=== PATIENT | male | born 1970 | race Caucasian/White ===

== ENCOUNTER 2017-12-29 19:20 | Observation (INO) ==
--- NOTE | 2017-12-29 19:22 | Emergency Department Note ---
Disposition Clinical Impression: Nausea and vomiting, Elevated troponin Disposition: Admitted As Inpatient Condition: Fair General Adult HPI - General Time Seen by Provider: 12/29/17 19:21 - Related Data Home Medications Medication Instructions Recorded Confirmed No Known Home Drugs 12/29/17 12/29/17 Allergies Allergy/AdvReac Type Severity Reaction Status Date / Time No Known Allergies Allergy Verified 04/01/16 08:21 Past Medical History - Past Medical History Medical history: Reports: COPD Surgical history: Reports: other (Bilateral inguinal hernia repairs) Psychiatric history: Reports: depression - Social History Smoking Status: Current every day smoker Smokeless Tobacco Status: No Alcohol use: Reports: none Drug use: Reports: marijuana Course Vital Signs Temperature 99 F 12/29/17 19:21 Pulse Rate 72 12/29/17 19:21 Respiratory Rate 20 12/29/17 19:21 Blood Pressure 138/83 12/29/17 19:21 O2 Sat by Pulse Oximetry 99 12/29/17 19:21 Temperature 99 F 12/29/17 19:21 Pulse Rate 72 12/29/17 19:21 Respiratory Rate 20 12/29/17 19:21 Blood Pressure 138/83 12/29/17 19:21 O2 Sat by Pulse Oximetry 99 12/29/17 19:21 Oxygen Delivery Oxygen Delivery Room Air Medical Decision Making - Lab Data Result diagrams: 12/29/17 20:24 12/29/17 20:24 Lab Results 12/29/17 12/29/17 12/29/17 Range/Units 20:24 20:24 20:24 WBC 9.3 (4.3-11.1) K/mcL RBC 4.54 (4.19-5.50) M/mcL Hgb 13.7 (12.9-16.9) g/dL Hct 40.2 (37.5-50.1) % MCV 88.5 (83.0-100.0) fL MCH 30.2 (28.0-33.3) pg MCHC 34.1 (31.6-35.5) g/dL RDW 13.5 (11.5-14.5) % Plt Count 235 (140-400) K/mcL MPV 9.3 L (9.4-12.4) fL Immature Gran % 0.3 (0-4) % Seg Neutrophils % 81.1 % Lymphocytes % 14.1 % Monocytes % 2.7 % Eosinophils % 1.0 % Basophils % 0.8 % Neutrophils # 7.6 (1.6-8.9) K/mcL Lymphocytes # 1.3 (0.6-4.6) K/mcL Monocytes # 0.3 (0.0-1.3) K/mcL Eosinophils # 0.1 (0.0-0.6) K/mcL Basophils # 0.1 (0.0-0.2) K/mcL Sodium 140 (136-145) mEq/L Potassium 3.7 (3.5-5.1) mEq/L Chloride 108 H (98-107) mEq/L Carbon Dioxide 22 L (23-29) mEq/L BUN 10 (6-20) mg/dL Creatinine 0.82 (0.70-1.30) mg/dL Est GFR ( Amer) > 60 (> 60) Est GFR (Non-Af Amer) > 60 (> 60) BUN/Creatinine Ratio 12 (6-26) Glucose 111 H (70-105) mg/dL Calculated Osmolality 290 (280-300) Lactic Acid 0.8 (0.5-2.2) mmol/L Calcium 8.8 (8.6-10.3) mg/dL Magnesium (1.6-2.6) mg/dL Total Bilirubin 0.4 (0.3-1.0) mg/dL Direct Bilirubin 0.1 (0.0-0.2) mg/dL Indirect Bilirubin 0.3 (0.0-1.2) mg/dL AST 16 (13-39) Units/L ALT 13 (7-52) Units/L Alkaline Phosphatase 45 (34-104) Units/L Troponin I 0.09 H* (< 0.04) ng/mL Serum Total Protein 6.0 L (6.4-8.9) g/dL Albumin 4.0 (3.5-5.7) g/dL Globulin 2.0 L (2.4-3.5) g/dL Albumin/Globulin Ratio 2.0 (1.1-2.2) Lipase 10 L (11-82) Units/L 03/16/18 Range/Units 20:24 WBC (4.3-11.1) K/mcL RBC (4.19-5.50) M/mcL Hgb (12.9-16.9) g/dL Hct (37.5-50.1) % MCV (83.0-100.0) fL MCH (28.0-33.3) pg MCHC (31.6-35.5) g/dL RDW (11.5-14.5) % Plt Count (140-400) K/mcL MPV (9.4-12.4) fL Immature Gran % (0-4) % Seg Neutrophils % % Lymphocytes % % Monocytes % % Eosinophils % % Basophils % % Neutrophils # (1.6-8.9) K/mcL Lymphocytes # (0.6-4.6) K/mcL Monocytes # (0.0-1.3) K/mcL Eosinophils # (0.0-0.6) K/mcL Basophils # (0.0-0.2) K/mcL Sodium (136-145) mEq/L Potassium (3.5-5.1) mEq/L Chloride (98-107) mEq/L Carbon Dioxide (23-29) mEq/L BUN (6-20) mg/dL Creatinine (0.70-1.30) mg/dL Est GFR ( Amer) (> 60) Est GFR (Non-Af Amer) (> 60) BUN/Creatinine Ratio (6-26) Glucose (70-105) mg/dL Calculated Osmolality (280-300) Lactic Acid (0.5-2.2) mmol/L Calcium (8.6-10.3) mg/dL Magnesium 1.8 (1.6-2.6) mg/dL Total Bilirubin (0.3-1.0) mg/dL Direct Bilirubin (0.0-0.2) mg/dL Indirect Bilirubin (0.0-1.2) mg/dL AST (13-39) Units/L ALT (7-52) Units/L Alkaline Phosphatase (34-104) Units/L Troponin I (< 0.04) ng/mL Serum Total Protein (6.4-8.9) g/dL Albumin (3.5-5.7) g/dL Globulin (2.4-3.5) g/dL Albumin/Globulin Ratio (1.1-2.2) Lipase (11-82) Units/L Attestation Statement - Attestation Attestation: I examined this patient and my medical decision-making was reviewed with the Resident Physician. I agree with the documented findings, disposition and treatment plan as described except to the extent set forth below. [id number] time provided Patient arrives by EMS complaining of nausea and vomiting. He is actively retching at the time of my initial exam. Patient seen in conjunction with the resident physician Dr. Prabhakar
[2017-12-29] MEDS ORDERED: Ondansetron 4 MG/2 ML VIAL IVP ONE (19:23)
[2017-12-29] MEDS ORDERED: 0.9 % Sodium Chloride 1,000 ML IVC ONE (19:23)
[2017-12-29] MEDS ORDERED: Hyoscyamine 0.5 MG/ML MLS IVP ONE (19:28)
[2017-12-29] MEDS ORDERED: Ipratropium/Albuterol Neb 3 ML IH ONE (19:29)
--- NOTE | 2017-12-29 19:32 | Emergency Department Note ---
Disposition Clinical Impression: Elevated troponin Nausea and vomiting Qualifiers: Vomiting type: unspecified Vomiting Intractability: non-intractable Qualified Code(s): R11.2 - Nausea with vomiting, unspecified Disposition: Admitted As Inpatient Condition: Fair Time of Disposition: 22:15 General Adult HPI - General Chief complaint: ED Shortness of Breath/Dyspnea Stated complaint: sob/n/v/d Time Seen by Provider: 12/29/17 19:21 Source: patient Mode of arrival: ambulatory Limitations: no limitations Nursing Notes Reviewed: Yes Vital Signs Reviewed: Yes - History of Present Illness HPI Narrative: 47-year-old male with history of tobacco use presents for evaluation of nausea vomiting diarrhea. Patient also complains of shortness of breath. Patient states it was earlier today. Patient has had several episodes of nonbloody diarrhea. Patient also been vomiting. Patient has cold chills but denies any fevers. Patient also notes shortness of breath. Patient denies any chest pain. Patient notes some abdominal cramping. She denies any recent travel. Pain Scale: 0 - Related Data Home Medications Medication Instructions Recorded Confirmed No Known Home Drugs 12/29/17 12/29/17 Allergies Allergy/AdvReac Type Severity Reaction Status Date / Time No Known Allergies Allergy Verified 04/01/16 08:21 All systems ED: reviewed and negative except as stated. Constitutional: Denies: fever Cardiovascular: Denies: chest pain Respiratory: Reports: cough, dyspnea Gastrointestinal: Reports: abdominal pain, nausea, vomiting, diarrhea Past Medical History - Past Medical History Source: patient Medical history: Reports: COPD Surgical history: Reports: other (Bilateral inguinal hernia repairs) Psychiatric history: Reports: depression - Social History Smoking Status: Current every day smoker Smokeless Tobacco Status: No Alcohol use: Reports: none Drug use: Reports: marijuana Physical Exam - General Limitations: no limitations General appearance: alert, in no apparent distress - Head Head exam: atraumatic, normocephalic, normal inspection - Eye Eye exam: Present: normal appearance, PERRL, EOMI - ENT ENT exam: normal exam - Neck Neck exam: Present: normal inspection - Chest Chest inspection: Present: normal inspection, symmetric chest wall rise - Respiratory Respiratory exam: Present: prolonged expiratory phase, other (Diffuse rhonchorous breath sounds throughout). Absent: respiratory distress - Cardiovascular Cardiovascular exam: Present: regular rate, normal rhythm. Absent: systolic murmur - Abdominal Exam Abdominal exam: Present: soft, Non-Tender. Absent: tenderness, guarding, rebound - Extremities Exam Extremities exam: Present: normal inspection. Absent: pedal edema - Back Exam Back exam: Present: normal inspection - Neurological Exam Neurological exam: Present: alert, oriented X3 - Skin Skin exam: Present: warm, dry, intact, normal color Course Course Narrative: Patient seen and examined. Patient will get basic labs, chest x-ray, EKG symptom actually with IV fluids. Patient also get a breathing treatment. Disposition pending. - Reevaluation(s) Reevaluation #1: Patient is receiving IV fluids. Patient's also receiving antiemetics. Chest x- ray is unremarkable. Time: 20:56 Reevaluation #2: Patients resting comfortably. Time: 21:45 Reevaluation #3: Repeat EKG shows sinus rhythm with no ST or T-wave changes. Regular axis regular rhythm. Time: 22:07 Additional Reevaluation(s): 2219: Patient's been resting comfortably. Patient denies any chest pain or shortness of breath currently. Patient's abdomen plan of care. Patient be admitted for trending troponins and continuing cardiopulmonary evaluation. Vital Signs Temperature 99 F 12/29/17 19:21 Pulse Rate 72 12/29/17 19:21 Respiratory Rate 20 12/29/17 19:21 Blood Pressure 138/83 12/29/17 19:21 O2 Sat by Pulse Oximetry 99 12/29/17 19:21 Temperature 99 F 12/29/17 19:21 Pulse Rate 72 12/29/17 19:21 Respiratory Rate 20 12/29/17 19:21 Blood Pressure 138/83 12/29/17 19:21 O2 Sat by Pulse Oximetry 99 12/29/17 19:21 Oxygen Delivery Oxygen Delivery Room Air Medical Decision Making - [facility] Narrative Medical decision making narrative: Patient presents with complaints of nausea vomiting. Patient reports he does have a cardiac history. However patient had several episodes of nonbilious emesis upon arrival. Patient appeared to be somewhat uncomfortable. Patient had a screening cardiopulmonary evaluation with EKG chest x-ray troponin. Troponin came back elevated at 0.09. Patient did have isolated IA depression in lead 2. Patient did not meet STEMI criteria. Patient had serial EKGs which were unremarkable. Patient was denying chest pain throughout his ED course. Patient denies shortness of breath. Less likely this is pulmonary embolism. Patient denies history of IV drug use. Urinalysis as well as urine drug screen were ordered. Patient was treated with antiemetics. Concerns of nausea and anginal equivalent. Patient was given Lovenox injection given elevated troponin. Patient does not have any contra indications for anticoagulation. Patient will be admitted to the hospital service for further evaluation monitoring. - Lab Data Lab results reviewed: Yes I reviewed the patient's lab results. Result diagrams: 12/29/17 20:24 12/29/17 20:24 Lab Results 12/29/17 12/29/17 12/29/17 Range/Units 20:24 20:24 20:24 WBC 9.3 (4.3-11.1) K/mcL RBC 4.54 (4.19-5.50) M/mcL Hgb 13.7 (12.9-16.9) g/dL Hct 40.2 (37.5-50.1) % MCV 88.5 (83.0-100.0) fL MCH 30.2 (28.0-33.3) pg MCHC 34.1 (31.6-35.5) g/dL RDW 13.5 (11.5-14.5) % Plt Count 235 (140-400) K/mcL MPV 9.3 L (9.4-12.4) fL Immature Gran % 0.3 (0-4) % Seg Neutrophils % 81.1 % Lymphocytes % 14.1 % Monocytes % 2.7 % Eosinophils % 1.0 % Basophils % 0.8 % Neutrophils # 7.6 (1.6-8.9) K/mcL Lymphocytes # 1.3 (0.6-4.6) K/mcL Monocytes # 0.3 (0.0-1.3) K/mcL Eosinophils # 0.1 (0.0-0.6) K/mcL Basophils # 0.1 (0.0-0.2) K/mcL Sodium 140 (136-145) mEq/L Potassium 3.7 (3.5-5.1) mEq/L Chloride 108 H (98-107) mEq/L Carbon Dioxide 22 L (23-29) mEq/L BUN 10 (6-20) mg/dL Creatinine 0.82 (0.70-1.30) mg/dL Est GFR ( Amer) > 60 (> 60) Est GFR (Non-Af Amer) > 60 (> 60) BUN/Creatinine Ratio 12 (6-26) Glucose 111 H (70-105) mg/dL Calculated Osmolality 290 (280-300) Lactic Acid 0.8 (0.5-2.2) mmol/L Calcium 8.8 (8.6-10.3) mg/dL Magnesium (1.6-2.6) mg/dL Total Bilirubin 0.4 (0.3-1.0) mg/dL Direct Bilirubin 0.1 (0.0-0.2) mg/dL Indirect Bilirubin 0.3 (0.0-1.2) mg/dL AST 16 (13-39) Units/L ALT 13 (7-52) Units/L Alkaline Phosphatase 45 (34-104) Units/L Troponin I 0.09 H* (< 0.04) ng/mL Serum Total Protein 6.0 L (6.4-8.9) g/dL Albumin 4.0 (3.5-5.7) g/dL Globulin 2.0 L (2.4-3.5) g/dL Albumin/Globulin Ratio 2.0 (1.1-2.2) Lipase 10 L (11-82) Units/L 12/29/17 Range/Units 20:24 WBC (4.3-11.1) K/mcL RBC (4.19-5.50) M/mcL Hgb (12.9-16.9) g/dL Hct (37.5-50.1) % MCV (83.0-100.0) fL MCH (28.0-33.3) pg MCHC (31.6-35.5) g/dL RDW (11.5-14.5) % Plt Count (140-400) K/mcL MPV (9.4-12.4) fL Immature Gran % (0-4) % Seg Neutrophils % % Lymphocytes % % Monocytes % % Eosinophils % % Basophils % % Neutrophils # (1.6-8.9) K/mcL Lymphocytes # (0.6-4.6) K/mcL Monocytes # (0.0-1.3) K/mcL Eosinophils # (0.0-0.6) K/mcL Basophils # (0.0-0.2) K/mcL Sodium (136-145) mEq/L Potassium (3.5-5.1) mEq/L Chloride (98-107) mEq/L Carbon Dioxide (23-29) mEq/L BUN (6-20) mg/dL Creatinine (0.70-1.30) mg/dL Est GFR ( Amer) (> 60) Est GFR (Non-Af Amer) (> 60) BUN/Creatinine Ratio (6-26) Glucose (70-105) mg/dL Calculated Osmolality (280-300) Lactic Acid (0.5-2.2) mmol/L Calcium (8.6-10.3) mg/dL Magnesium 1.8 (1.6-2.6) mg/dL Total Bilirubin (0.3-1.0) mg/dL Direct Bilirubin (0.0-0.2) mg/dL Indirect Bilirubin (0.0-1.2) mg/dL AST (13-39) Units/L ALT (7-52) Units/L Alkaline Phosphatase (34-104) Units/L Troponin I (< 0.04) ng/mL Serum Total Protein (6.4-8.9) g/dL Albumin (3.5-5.7) g/dL Globulin (2.4-3.5) g/dL Albumin/Globulin Ratio (1.1-2.2) Lipase (11-82) Units/L - Radiology Data Radiology results reviewed: Yes I reviewed the patient's radiology results. Chest X-Ray 12/29/17 19:29 IMPRESSION: 1. No acute process. D/ / Jean Garrett MD / Jean Garrett MD Interpreting Provider: Jean Garrett MD - EKG Data EKG #1 EKG attestation: Yes I reviewed and interpreted this EKG. EKG shows normal: sinus rhythm Rate: normal Rhythm: NSR [place]/QRS: normal Interpretation: no acute changes S.B.A.R. - S.B.A.R. Situation: Demographics Background: Presenting Complaint Assessment: Vital Signs, Course and respsone to treatment, Patient/Family Expectation Recommendation: Barrier(s) to disposition, Recommendation based on pending studies, treatments, or consults Jerome Report Given to: Dr. Newton Cano Repor Time: 22:15
[2017-12-29] MEDS ORDERED: *HR* Promethazine 25 MG/ML VIAL IVP ONE (20:33)
[2017-12-29 21:26] LABS: Alanine Aminotransferase 13 Units/L (7-52); Alkaline Phosphatase 45 Units/L (34-104); Aspartate Amino Transferase 16 Units/L (13-39); BUN/Creatinine Ratio 12 (6-26); Bilirubin,Direct 0.1 mg/dL (0.0-0.2); Bilirubin,Indirect 0.3 mg/dL (0.0-1.2); Bilirubin,Total 0.4 mg/dL (0.3-1.0); Blood Urea Nitrogen 10 mg/dL (6-20); Calcium 8.8 mg/dL (8.6-10.3); Carbon Dioxide 22 mEq/L (23-29); Chloride 108 mEq/L (98-107); Glucose 111 mg/dL (70-105); Lipase 10 Units/L (11-82); Osmolality,Calculated 290 (280-300); Potassium 3.7 mEq/L (3.5-5.1); Sodium 140 mEq/L (136-145); eGFR For African Americans > 60 (> 60); eGFR For Non-African Americans > 60 (> 60)
[2017-12-29 21:42] LABS: Troponin I 0.09 ng/mL (< 0.04)
[2017-12-29] MEDS ORDERED: Aspirin 81 MG TAB.CHEW PO ONE (21:47)
[2017-12-29 22:02] LABS: Basophils # 0.1 K/mcL (0.0-0.2); Basophils % 0.8 %; Eosinophils # 0.1 K/mcL (0.0-0.6); Hematocrit 40.2 % (37.5-50.1); Hemoglobin 13.7 g/dL (12.9-16.9); Immature Granulocytes % 0.3 % (0-4); Lymphocytes # 1.3 K/mcL (0.6-4.6); Lymphocytes % 14.1 %; Mean Corpuscular HGB Conc 34.1 g/dL (31.6-35.5); Mean Corpuscular Hemoglobin 30.2 pg (28.0-33.3); Mean Corpuscular Volume 88.5 fL (83.0-100.0); Mean Platelet Volume 9.3 fL (9.4-12.4); Monocytes # 0.3 K/mcL (0.0-1.3); Monocytes % 2.7 %; Neutrophils # 7.6 K/mcL (1.6-8.9); Platelet Count 235 K/mcL (140-400); Red Blood Count 4.54 M/mcL (4.19-5.50); Red Cell Distribution Width 13.5 % (11.5-14.5); Segmented Neutrophils % 81.1 %
[2017-12-29] MEDS ORDERED: *HR* Enoxaparin 80 MG/0.8 ML SYRINGE SQ STA (22:11)
[2017-12-29 22:47] LABS: Bilirubin,Urine Small (Negative); Blood,Urine Negative (Negative); Clarity,Urine Clear (Clear); Color,Urine Dark Yellow (Yellow); Glucose,Urine (UA) Normal (Normal); Ketones,Urine 40 mg/dL (Negative); Leukocyte Esterase,Urine Negative (Negative); Nitrite,Urine Negative (Negative); Protein,Urine 30 mg/dL (Neg-Trace); Specific Gravity,Urine 1.022 (1.010-1.025); Urobilinogen,Urine Normal (Normal)
[2017-12-29 22:48] LABS: Amphetamine Screen,Urine Negative ng/mL (Cutoff=1000); Barbiturate Screen,Urine Negative ng/mL (Cutoff=200); Benzodiazepines Screen,Urine Negative ng/mL (Cutoff=200); Cannabinoid Screen,Urine Positive ng/mL (Cutoff = 50); Cocaine Screen,Urine Negative ng/mL (Cutoff= 300); Opiate Screen,Urine Negative ng/mL (Cutoff=300); Phencyclidine Screen,Urine Negative ng/mL (Cutoff=25)
[2017-12-29 22:49] LABS: Hyaline Casts,Urine None Seen per lpf (None-Few); Squamous Epithelial Cell,Urine Many per lpf (None-Few); WBC,Urine 0-3 per hpf (0-3)
[2017-12-29 22:58] LABS: Bacteria,Urine Few per hpf (None-Few)
[2017-12-30] MEDS ORDERED: Naloxone 0.4 MG/ML INJ IVP PRN (00:18)
[2017-12-30] MEDS ORDERED: Acetaminophen 325 MG TABLET PO PRN (00:35)
[2017-12-30] MEDS ORDERED: Hyoscyamine 0.5 MG/ML MLS IVP PRN (00:35)
[2017-12-30] MEDS ORDERED: Ondansetron 4 MG/2 ML VIAL IVP PRN (00:35)
[2017-12-30] MEDS: D5% in 0.45% NACL w KCl 10 MEQ/1,000 ML MLS IVC SCH ×2 (01:39→14:18)
--- NOTE | 2017-12-30 02:28 | Internal Med History&Physical ---
Date of Encounter: 12/29/17 Time of Encounter: 22:00 Assessment and Plan (1) Elevated troponin Current visit: Yes Status: Acute Troponin is elevated to 0.09. We will continue to trend troponin 3 with concern for NSTEMI ECG did show some MO depression in lead 2, but no ST changes Vital signs are stable, and the patient is denying chest pain CXR shows no acute process Will continue Lovenox BID and aspirin Will consult cardiology (2) Nausea and vomiting Current visit: Yes Status: Acute Nausea and vomiting are much improved with medications. Patient received Levsin, Benadryl, Zofran, and Phenergan in the emergency department Continue symptomatic treatment with Zofran and Levsin Qualifiers: Vomiting type: unspecified Vomiting Intractability: non-intractable Qualified Code(s): R11.2 - Nausea with vomiting, unspecified (3) COPD (chronic obstructive pulmonary disease) Current visit: Yes Status: Chronic Does not appear to be an acute exacerbation at this time, nonproductive sputum and wheezing. Will have DuoNeb's available on an as-needed basis for shortness of breath Qualifiers: COPD type: unspecified COPD Qualified Code(s): J44.9 - Chronic obstructive pulmonary disease, unspecified (4) DVT prophylaxis Current visit: Yes Status: Acute Patient is on Lovenox Internal Medicine - H&P: HPI Chief complaint: Nausea/vomiting Admitted From: Emergency Dept History of present illness: Mr. Pelayo is a 47 year old male with PMH of COPD and tobacco use, presents the emergency department with nausea, vomiting, and diarrhea that began several hours prior to arrival. He states that there were no preceding symptoms, however he was quite active doing things around the house before that began. He states that he had several episodes of diarrhea is nonbloody. He is reporting some subjective chills, but no fever. Associated symptoms include shortness of breath, dry non-productive cough, and diffuse abdominal cramping pain, and symptoms have been relatively constant. He denies radiation of his abdominal pain and denies diaphoresis. Nothing seems to make his symptoms worse. He reports improvement in symptoms after receiving medications in the emergency department. He denies having any syncope, chest pain, or dysuria with his symptoms today. He denies having any chest pain in the past. He states that he is not in any heart problems in the past, hypertension, or diabetes. He is a current every day smoker. Past Med Surg Social Fam HX - Past Medical History Medical history: COPD Psychiatric history: depression - Past Surgical History Surgical History: herniorrhaphy - Social History Smoking Status: Current every day smoker Packs per day: 1 Smokeless Tobacco Status: No Alcohol use: none Drug use: marijuana - Family History Father Adopted: [employer]: [employer] Family Member Ethnicity: Non- Living Status: Age at : 69 Cause of : NM Hx Family Cardiac Disorders: Yes Internal Medicine - H&P: Meds No Known Home Drugs 12/29/17 [History] 3 Allergy/AdvReac Type Severity Reaction Status Date / Time No Known Allergies Allergy Verified 04/01/16 08:21 All Systems PM: A 10-system review of systems was performed and is negative for pertinent findings except as documented above in the HPI. - Constitutional Vitals: Temp Pulse Resp BP Pulse Ox 99 F 72 18 120/81 99 12/29/17 19:21 12/29/17 19:21 12/29/17 22:58 12/29/17 22:58 12/29/17 19:21 General appearance: Present: A&O X 3, no acute distress - Head Head exam: Present: atraumatic, normocephalic - Eye Eye exam: Present: PERRL, conjuntiva pink, sclera anicteric - Neck Neck exam general surgery: Present: supple, trachea midline. Absent: lymphadenopathy - Respiratory Respiratory exam: Present: CTAB. Absent: accessory muscle use, rales, rhonchi, wheezes - Cardiovascular Cardiovascular exam: Present: RRR, +S1, +S2. Absent: diastolic murmur, systolic murmur - GI/Abdominal GI/Abdominal exam: Present: normal bowel sounds, soft, tenderness (Mild diffuse) , no peritoneal signs. Absent: distended, guarding, rebound, rigid - Extremities Exam Extremities exam: Present: warm, radial pulses palpable and symmetrical. Absent : calf tenderness, cyanotic, pedal edema - Neurological Exam Neurological exam: Present: CN II-XII intact, oriented X3, no focal deficits - Skin Skin exam: Present: dry, intact Internal Med - H&P Results - Labs CBC & Chem 7: 12/29/17 20:24 12/29/17 20:24 Labs: Urine 12/29/17 Range/Units 22:31 Urine Color Dark Yellow (Yellow) Urine Clarity Clear (Clear) Urine pH 7.0 (5.0-8.0) pH Units Ur Specific [place] 1.022 (1.010-1.025) Urine Protein 30 H (Neg-Trace) mg/dL Urine Glucose (UA) Normal (Normal) mg/dL
[2017-12-30] MEDS: Ipratropium/Albuterol Neb 3 ML IH SCH ×4 (04:01→22:32)
[2017-12-30 04:56] LABS: INR 1.2; Prothrombin Time 12.7 Seconds (9.4-12.1)
[2017-12-30 04:58] LABS: Basophils % 0.5 %; Hematocrit 41.7 % (37.5-50.1); Hemoglobin 14.1 g/dL (12.9-16.9); Immature Granulocytes % 0.4 % (0-4); Lymphocytes # 1.3 K/mcL (0.6-4.6); Lymphocytes % 15.8 %; Mean Corpuscular HGB Conc 33.8 g/dL (31.6-35.5); Mean Corpuscular Hemoglobin 29.9 pg (28.0-33.3); Mean Corpuscular Volume 88.3 fL (83.0-100.0); Mean Platelet Volume 9.3 fL (9.4-12.4); Monocytes # 0.2 K/mcL (0.0-1.3); Monocytes % 2.5 %; Neutrophils # 6.5 K/mcL (1.6-8.9); Platelet Count 246 K/mcL (140-400); Red Blood Count 4.72 M/mcL (4.19-5.50); Red Cell Distribution Width 13.5 % (11.5-14.5); Segmented Neutrophils % 80.8 %
[2017-12-30 04:59] LABS: Activated Partial Thrombo Time 39.3 Seconds (26.0-36.0)
[2017-12-30 05:18] LABS: BUN/Creatinine Ratio 14 (6-26); Blood Urea Nitrogen 11 mg/dL (6-20); Calcium 9.2 mg/dL (8.6-10.3); Carbon Dioxide 22 mEq/L (23-29); Chloride 106 mEq/L (98-107); Chol/HDL Ratio 4.7 (0-4.9); Cholesterol 187 mg/dL (< 200); Glucose 144 mg/dL (70-105); HDL Cholesterol 40 mg/dL (40-59); LDL Cholesterol,Calculated 132 mg/dL (0-99); Osmolality,Calculated 288 (280-300); Sodium 138 mEq/L (136-145); Triglycerides 76 mg/dL (< 150); eGFR For African Americans > 60 (> 60); eGFR For Non-African Americans > 60 (> 60)
[2017-12-30 05:26] LABS: Thyroid Stimulating Hormone 0.494 mcIU/mL (0.340-5.600)
[2017-12-30] MEDS ORDERED: Aspirin 325 MG TABLET PO SCH (09:00)
[2017-12-30] MEDS: *HR* Enoxaparin 80 MG/0.8 ML SYRINGE SQ SCH ×2 (09:10→21:19)
--- NOTE | 2017-12-30 10:39 | Cardiology Consult Note ---
<Mike Sims - Last Filed: 12/30/17 11:07> Date of Encounter: 12/30/17 Time of Encounter: 10:40 Assessment and Plan (1) Elevated troponin Current Visit: Yes Status: Acute Per Cardiology: History of nonobstructive CAD. [facility] 01/2015: Lesion Findings/Interventions * Left Main Coronary Artery The LMCA is angiographically free of disease. * Left Anterior Descending The LAD has minimal disease The 1st Diagonal is angiographically free of disease. * Circumflex - tortuous The Circumflex is angiographically free of disease. The 1st Marginal is angiographically free of disease. * Right Coronary Artery There is a 40% stenosis in the Proximal RCA. Presented with elevated troponin 0.09 x 2. Patient has been noncompliant with follow-up with cardiology with being last seen July 2015. Will check echo. On aspirin, will add statin. On Lovenox. Further recommendations pending echo. Anticipate will need repeat left heart catheterization-- has been experiencing increasing dyspnea on exertion and fatigue. Will discuss with Dr. Sofia. Patient agreeable to proceed if clinically warranted. (2) Pre-syncope Current Visit: Yes Status: Acute Per Cardiology: Reports "went out". Increased dizziness and lightheadedness. Significant smoking history and history CAD. No bruits noted. Will interrogate pacer. Proceed with carotid duplex. No events noted on telemetry. Systolic blood pressures in the 90s. Will obtain orthostatics. (3) Artificial cardiac pacemaker Current Visit: Yes Status: Chronic Per Cardiology: History of permanent pacemaker for sick sinus syndrome with last device check November 2015 showing [employer] normal dual pacer check with battery longevity 9.5 years. Has not been compliant with follow-up-- pacer check ok, overall measurements ok with 205 episodes of NSVT since last checked in 2015. Will consider addition of BB if BP will tolerate. (4) Polysubstance abuse Current Visit: Yes Status: Chronic Per Cardiology: Tox screen positive for marijuana. Patient denies any other recreational drug use. Discussion w patient/family: The assessment and plan as outlined above was discussed with the patient who expressed understanding and agreement. All questions were answered. Thank you for involving us in the care of your patient. Please call with any questions. History of Present Illness Consult date: 12/30/17 Requesting physician: Gaurang Ontiveros Consult reason: CP, Mild Trop Chief complaint: CP, Fatigue, Dizziness History of present illness: Mr. Pelayo is a 47 year old male with a relevant past medical history of nonobstructive CAD, nicotine abuse, marijuana use, pacemaker due to sick sinus syndrome. Last seen by Dr. Bowling in 2014-- has been noncompliant with follow-up in the office and for pacer checks. Cardiology consult for mild troponin and chest pain symptoms. 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 He reports increased fatigue. He denies any chest pain symptoms until yesterday. He reports developed chills, diaphoresis, and diarrhea. He reports upon standing leaving the bathroom he "went out". He reports he felt short of breath with some chest heaviness. He reports he called the squad and presented to the ER. He currently denies any chest pain symptoms. He denies any active bleeding or blood loss. He reports he continues to smoke about three fourths pack per day and has smoked about 2 packs per day for 37 years. Admits to marijuana use. Denies any other recreational drugs or alcohol use. Patient does report also episodes of dizziness at rest and exertion that has increased in frequency. He denies any previous syncopal events. He does report intermittent palpitations with exertional activity. Past Med Surg Social Fam HX - Past Medical History Attestation: Yes The following information was validated with the patient. Source: patient, old records reviewed Medical history: COPD, coronary artery disease Psychiatric history: depression - Past Surgical History Surgical History: herniorrhaphy - Social History Smoking Status: Current every day smoker Packs per day: 1 Smokeless Tobacco Status: No Alcohol use: none Drug use: marijuana - Family History Father Adopted: [place]: NIKO Family Member Ethnicity: Non- Living Status: Age at : 69 Cause of : IN Hx Family Cardiac Disorders: Yes Medications and Allergies No Known Home Drugs 12/29/17 [History] 3 Allergy/AdvReac Type Severity Reaction Status Date / Time No Known Allergies Allergy Verified 12/30/17 15:26 All Systems Review: The remainder of the systems were reviewed and are negative - Constitutional Constitutional: fatigue - Cardiovascular Cardiovascular: as per HPI, chest pain at rest, lightheadedness Physical Examination Vital Signs, Last 4 Hours Temp Pulse Resp BP Pulse Ox 12/30/17 08:21 98.8 F 59 16 94/65 93 General: Conversant, No Apparent Distress, Other (Appears older than chronological age) HEENT: Atraumatic, Normocephaly, Mucus Membranes Moist Neck: No JVD, Normal carotid pulses, Other (No carotid bruits noted) Cardiac: Reg Rate and Rhythm, Normal S1 and S2, No Murmur Lungs: Normal Breath Sounds, No Wheeze, Rales, Rhonchi Neuro: Alert and responsive, No focal deficits noted Abdomen: Soft, Non-Tender Skin: No rashes noted on visualized skin Musculoskeletal: No Chest Wall Tenderness Extremities: No Clubbing, No Cyanosis, No Edema, Normal Pulses Results 12/30/17 03:26 12/30/17 03:26 Lab Results Laboratory Tests 12/29/17 12/29/17 12/30/17 20:24 22:31 03:26 Hgb Hct INR Creatinine Est GFR (Non-Af Amer) AST 16 ALT 13 Troponin I 0.09 H* 0.09 H* LDL Cholesterol, Calc TSH U Marijuana (THC) Screen Positive H 12/30/17 12/30/17 12/30/17 03:26 03:26 03:26 Hgb 14.1 Hct 41.7 INR 1.2 Creatinine 0.81 Est GFR (Non-Af Amer) > 60 AST ALT Troponin I LDL Cholesterol, Calc 132 H TSH 0.494 U Marijuana (THC) Screen ITS Impressions Chest X-Ray 12/29/17 19:29 IMPRESSION: 1. No acute process. D/ / Jean Garrett MD / Jean Garrett MD Interpreting Provider: Jean Garrett MD Active Medications Acetaminophen (Tylenol) 650 mg PO Q6HR PRN PRN Reason: Pain Stop: 07/01/18 00:36 Albuterol/Ipratropium (Duoneb) 3 ml IH QIDR DIANELYS Stop: 07/01/18 05:01 Last Admin: 12/30/17 09:25 Dose: 3 ml Aspirin (Aspirin) 325 mg PO DAILY DIANELYS Stop: 07/01/18 09:01 Last Admin: 12/30/17 09:10 Dose: 325 mg Enoxaparin Sodium (Lovenox) 70 mg 1 mg/kg (70 mg) SQ Q12H DIANELYS PRN Reason: Protocol Stop: 07/01/18 10:01 Last Admin: 12/30/17 09:10 Dose: 70 mg Hyoscyamine Sulfate (Levsin) 0.25 mg IVP QID PRN PRN Reason: abdominal pain Stop: 07/01/18 00:36 Potassium Chloride/Dextrose/Sod Cl (Kcl 10meq In D5-0.45 Nacl) 10 meq in 1,000 mls @ 100 mls/hr IVC .Q10H DIANELYS Stop: 07/01/18 01:16 Last Admin: 12/30/17 01:39 Dose: 100 mls/hr Naloxone HCl (Narcan) 0.4 mg IVP Q2MIN PRN PRN Reason: SEE COMMENTS Stop: 07/01/18 00:19 Ondansetron HCl (Zofran) 4 mg IVP Q6HR PRN; Protocol PRN Reason: Nausea Stop: 07/01/18 00:36 - Imaging and Cardiology Echo: pending, report reviewed (ECHO 01/2015: Impressions: Technically challenging study with suboptimal windows. On provided views, LV function appears normal and estimated at 60%. SWMA could not be evaluated. RV function and size on subcostal views appears normal. RA and LA on subcostal views appear normal in size. No significant valvular dysfunction although valves were suboptimally evaluated. IVC is normal in size. There is a long linear echodensity within the IVC, consistent with line placement.) Cardiac cath: pending - EKG Interpretation EKG results cardiology: personally reviewed (Sinus rhythm the 70s), normal ECG, sinus rhythm, no diagnostic ischemia, other (Sinus rhythm on telemetry, no events noted) Consult Discharge Plan - Plan Referrals: NONE,PCP [Primary Care Provider] - <Wilfred Sofia - Last Filed: 12/30/17 22:23> Date of Encounter: 12/30/17 - Attending Attestation I have personally performed a face to face evaluation on this patient. I have reviewed and agree with the care plan. History and Exam by me shows: 47-year-old male with nonobstructive coronary artery disease involving the proximal RCA. Left heart catheter was in 2014. He currently presents with increasing shortness of breath fatigue tiredness. He has a history of hyperthyroidism however he has not been on his medications. Will obtain a T4 if elevated may consider a stress test versus a left heart cath. If within normal range possible progression of disease in his RCA may be a culprit especially in the setting of mildly elevated troponins and a left heart catheter would be reasonable. Risks benefits and alternatives discussed patient agrees to proceed Assessment and Plan Discussion w patient/family: The assessment and plan as outlined above was discussed with the patient and/or family members who expressed understanding and agreement. All questions were answered. Thank you for involving us in the care of your patient. Please call with any questions. History of Present Illness History of present illness: Mr. Pelayo is a 47 year old male All Systems Review: The remainder of the systems were reviewed and are negative Physical Examination Vital Signs, Last 4 Hours Temp Pulse Resp BP Pulse Ox 12/30/17 19:15 98.6 F 86 16 103/56 95 Results 12/30/17 03:26 18 03:26 Lab Results 12/30/17 12/30/17 12/30/17 03:26 03:26 03:26 WBC 8.1 Hgb 14.1 Hct 41.7 Plt Count 246 INR 1.2 APTT 39.3 H Sodium Potassium Chloride Carbon Dioxide BUN Creatinine Glucose Calcium Troponin I 0.09 H* TSH 12/30/17 12/30/17 03:26 10:05 WBC Hgb Hct Plt Count INR APTT Sodium 138 Potassium 4.0 Chloride 106 Carbon Dioxide 22 L BUN 11 Creatinine 0.81 Glucose 144 H Calcium 9.2 Troponin I 0.09 H* TSH 0.494
--- NOTE | 2017-12-30 17:53 | Event Note ---
Date of Encounter: 12/30/17 Time of Encounter: 17:49 (1) Elevated troponin has known CAD. Troponin is elevated to 0.09. Evaluated by cardiology who noted patient has been noncompliant with cardiology follow-up. Will likely need L HC as patient reported increasing dyspnea on exertion and fatigue. TTE pending. Continue ASA, statin, therapeutic Lovenox. Cardiology following (2) Nausea and vomiting Nausea and vomiting are much improved with medications.. Patient received Levsin , Benadryl, Zofran, and Phenergan in the emergency department. Continue symptomatic treatment with Zofran and Levsin. Appears resolved as of 12/30/17 eating. Advance diet as tolerated (3) COPD (chronic obstructive pulmonary disease) Does not appear to be an acute exacerbation at this time, nonproductive sputum and wheezing. PRN duo nebs (4) DVT prophylaxis Lovenox
[2017-12-31] MEDS: D5% in 0.45% NACL w KCl 10 MEQ/1,000 ML MLS IVC SCH ×2 (03:48→08:33)
[2017-12-31] MEDS: Ipratropium/Albuterol Neb 3 ML IH SCH ×4 (03:52→22:42)
--- NOTE | 2017-12-31 07:53 | Cardiology Progress Note ---
Date of Encounter: 12/31/17 Time of Encounter: 07:50 Assessment and Plan (1) Elevated troponin Current Visit: Yes Status: Acute Per Cardiology: History of nonobstructive CAD. [facility] 01/2015: Lesion Findings/Interventions * Left Main Coronary Artery The LMCA is angiographically free of disease. * Left Anterior Descending The LAD has minimal disease The 1st Diagonal is angiographically free of disease. * Circumflex - tortuous The Circumflex is angiographically free of disease. The 1st Marginal is angiographically free of disease. * Right Coronary Artery There is a 40% stenosis in the Proximal RCA. Presented with elevated troponin 0.09 x 3. Patient has been noncompliant with follow-up with cardiology with being last seen July 2015. On aspirin (will decrease to 81mg) and statin. On Lovenox. Echo pending; further recommendations pending echo. Anticipate will need repeat left heart catheterization vs ST. TSH/T4 stable. (2) Pre-syncope Current Visit: Yes Status: Acute Per Cardiology: Reports "went out". Increased dizziness and lightheadedness. Significant smoking history and history CAD. No bruits noted. CD pending. Pacer check with no significant events. No events noted on telemetry. Orthostatics negative. (3) Artificial cardiac pacemaker Current Visit: Yes Status: Chronic Per Cardiology: History of permanent pacemaker for sick sinus syndrome with last device check November 2015 showing Medtr[employer] normal dual pacer check with battery longevity 9.5 years. Has not been compliant with follow-up-- pacer check ok, overall measurements ok with 205 episodes of NSVT since last checked in 2016. Will consider addition of BB if BP will tolerate. (4) Polysubstance abuse Current Visit: Yes Status: Chronic Per Cardiology: Tox screen positive for marijuana. Patient denies any other recreational drug use. Discussion w patient/family: The assessment and plan as outlined above was discussed with the patient who expressed understanding and agreement. All questions were answered. Thank you for involving us in the care of your patient. Please call with any questions. Subjective Principal diagnosis: [place], CP Interval history: Patient reports still experiencing diarrhea. He denies any chest pain, shortness of breath, palpitations. Denies any active bleeding. Objective Vital Signs, Last 4 Hours Temp Pulse Resp BP Pulse Ox 12/31/17 07:42 98.9 F 62 16 101/60 97 12/31/17 03:53 18 97 12/31/17 03:52 98.4 F 60 16 112/73 97 Selected Entries 12/30/17 12:22 Pulse Rate [Orthostatic Lying] 75 Pulse Rate [Orthostatic Sitting] 77 Pulse Rate [Orthostatic Standing] 75 Blood Pressure [Orthostatic Lying] 101/65 Blood Pressure [Orthostatic Sitting] 121/78 Blood Pressure [Orthostatic Standing] 115/77 General: Conversant, No Apparent Distress Cardiac: Reg Rate and Rhythm, Normal S1 and S2, No Murmur Lungs: Normal Breath Sounds, No Wheeze, Rales, Rhonchi Neuro: Alert and responsive, No focal deficits noted Skin: No rashes noted on visualized skin Extremities: No Edema Results 12/30/17 03:26 12/30/17 03:26 Lab Results Laboratory Tests 12/29/17 12/30/17 12/30/17 20:24 03:26 03:26 Troponin I 0.09 H* 0.09 H* TSH 0.494 Free T4 12/30/17 12/31/17 10:05 05:08 Troponin I 0.09 H* TSH Free T4 0.95 Active Medications Acetaminophen (Tylenol) 650 mg PO Q6HR PRN PRN Reason: Pain Stop: 07/01/18 00:36 Albuterol/Ipratropium (Duoneb) 3 ml IH QIDR DIANELYS Stop: 07/01/18 05:01 Last Admin: 12/31/17 03:52 Dose: 3 ml Aspirin (Aspirin) 325 mg PO DAILY DIANELYS Stop: 07/01/18 09:01 Last Admin: 12/30/17 09:10 Dose: 325 mg Atorvastatin Calcium (Lipitor) 40 mg PO HS DIANELYS Stop: 07/01/18 21:01 Last Admin: 12/30/17 21:19 Dose: 40 mg Enoxaparin Sodium (Lovenox) 70 mg 1 mg/kg (70 mg) SQ Q12H DIANELYS PRN Reason: Protocol Stop: 07/01/18 10:01 Last Admin: 12/30/17 21:19 Dose: 70 mg Hyoscyamine Sulfate (Levsin) 0.25 mg IVP QID PRN PRN Reason: abdominal pain Stop: 07/01/18 00:36 Potassium Chloride/Dextrose/Sod Cl (Kcl 10meq In D5-0.45 Nacl) 10 meq in 1,000 mls @ 100 mls/hr IVC .Q10H DIANELYS Stop: 07/01/18 01:16 Last Admin: 12/31/17 03:48 Dose: 100 mls/hr Naloxone HCl (Narcan) 0.4 mg IVP Q2MIN PRN PRN Reason: SEE COMMENTS Stop: 07/01/18 00:19 Ondansetron HCl (Zofran) 4 mg IVP Q6HR PRN; Protocol PRN Reason: Nausea Stop: 07/01/18 00:36 - Imaging and Cardiology Echo: pending - EKG Interpretation EKG results cardiology: other (Atrial paced in the 60s, average heart rate passed 12 hours 70, no events noted) Consult Discharge Plan - Plan Referrals: NONE,PCP [Primary Care Provider] -
[2017-12-31] MEDS: Aspirin Enteric Coated 81 MG Tablet PO SCH (08:33)
[2017-12-31] MEDS: *HR* Enoxaparin 80 MG/0.8 ML SYRINGE SQ SCH ×2 (08:33→21:23)
[2017-12-31 15:55] LABS: Adenovirus Not Detected (Not Detect); Bordetella Pertussis Not Detected (Not Detect); Chlamydophila pneumoniae Not Detected (Not Detect); Coronavirus 229E Not Detected (Not Detect); Coronavirus HKU1 Not Detected (Not Detect); Coronavirus NL63 Not Detected (Not Detect); Coronavirus OC43 Not Detected (Not Detect); Human Metapneumovirus Not Detected (Not Detect); Human Rhinovirus/Enterovirus Not Detected (Not Detect); Influenza A Subtype 2009 H1 Not Detected (Not Detect); Influenza A Untypeable Not Detected (Not Detect); Influenza B Not Detected (Not Detect); Mycoplasma pneumoniae Not Detected (Not Detect); Parainfluenza Virus 1 Not Detected (Not Detect); Parainfluenza Virus 2 Not Detected (Not Detect); Parainfluenza Virus 3 Not Detected (Not Detect); Parainfluenza Virus 4 Not Detected (Not Detect); Respiratory Syncytial Virus Not Detected (Not Detect)
[2017-12-31] MEDS ORDERED: Azithromycin 500 MG in D5% in Water 250 ML IVPB SCH (16:00)
--- NOTE | 2017-12-31 16:01 | Internal Med Progress Note ---
Date of Encounter: 12/31/17 Time of Encounter: 16:00 - Assessment and plan (1) Elevated troponin Current Visit: Yes Status: Acute Assessment and plan: troponin 0.09 x 3. Known history CAD and has been noncompliant with cardiology follow-up. Cont ASA, statin, Lovenox. Cardiology planning [facility] 01/01/18. Cont to monitor on tele. (2) Nausea and vomiting Current Visit: Yes Status: Acute Assessment and plan: For 1 week prior to arrival with associated loose stool. Possibly gastroenteritis as patient reports family/friends with similar symptoms. Nausea and vomiting resolved as of 12/30; tolerating regular diet. Still with loose stool. GI panel pending. Qualifiers: Vomiting type: unspecified Vomiting Intractability: non-intractable Qualified Code(s): R11.2 - Nausea with vomiting, unspecified (3) Pre-syncope Current Visit: Yes Status: Acute Assessment and plan: With reported dizziness, lightheadedness and feeling as is he is going to pass out on day of presentation. [place] secondary to dehydration with suspected gastroenteritis. Symptoms improved with IV hydration. PPM check with no significant events. No evidence of orthostasis. Carotid Dopplers pending. (4) COPD (chronic obstructive pulmonary disease) Current Visit: Yes Status: Chronic Assessment and plan: per hx. suspect possible exacerbation with subjective fevers, chills, cough. Start IV azithromycin, ceftriaxone. Continue duo nebs. No wheezing, hold on steroids at this time. Qualifiers: COPD type: unspecified COPD Qualified Code(s): J44.9 - Chronic obstructive pulmonary disease, unspecified (5) DVT prophylaxis Current Visit: Yes Status: Acute Assessment and plan: lovenox - Subjective Interval history: Seen and examined at bedside. Information obtained from chart review and patient report. Says he feels significantly better from when he arrived. No chest pain or shortness of breath. No further nausea or emesis. He does report frequent loose stool. He is tolerating regular diet. He does report fevers, chills and nonproductive cough. - Constitutional Vitals: Temp Pulse Resp BP Pulse Ox 97.7 F 60 16 111/73 96 12/31/17 15:55 12/31/17 15:55 12/31/17 15:55 12/31/17 15:55 12/31/17 15:55 General appearance: Present: A&O X 3, no acute distress - Head Head exam: Present: atraumatic, normocephalic - Eye Eye exam: Present: PERRL, conjuntiva pink, sclera anicteric Pupils: Present: PERRL - Neck Neck exam general surgery: Present: supple, trachea midline. Absent: lymphadenopathy - Respiratory Respiratory exam: Present: CTAB. Absent: accessory muscle use, rales, rhonchi, wheezes - Cardiovascular Cardiovascular exam: Present: RRR, +S1, +S2. Absent: diastolic murmur, gallop, rubs, systolic murmur - GI/Abdominal GI/Abdominal exam: Present: normal bowel sounds, soft, no peritoneal signs. Absent: distended, tenderness - Extremities Exam Extremities exam: Present: warm, radial pulses palpable and symmetrical. Absent : calf tenderness, cyanotic, pedal edema - Neurological Exam Neurological exam: Present: CN II-XII intact, oriented X3, no focal deficits. Absent: pronater drift, facial droop, speech deficit - Skin Skin exam: Present: dry, intact Internal Medicine: Result - Labs CBC & Chem 7: 12/30/17 03:26 18 03:26 - ABG Interpretation ABG results: PT/INR, D-dimer PT 12.7 Seconds (9.4-12.1) H 12/30/17 03:26 Consult Discharge Plan - Plan Referrals: NONE,PCP [Primary Care Provider] -
[2017-12-31] MEDS: cefTRIAXone 1,000 MG in Water for inj. (sterile) 20 ML 10 ML IVP SCH (17:24)
[2018-01-01] MEDS: Ipratropium/Albuterol Neb 3 ML IH SCH ×3 (04:53→15:55)
[2018-01-01 06:31] LABS: Hematocrit 44.8 % (37.5-50.1); Hemoglobin 15.1 g/dL (12.9-16.9); Immature Platelets 2.3 % (1.1-6.1); Mean Corpuscular HGB Conc 33.7 g/dL (31.6-35.5); Mean Corpuscular Volume 88.9 fL (83.0-100.0); Mean Platelet Volume 9.4 fL (9.4-12.4); Red Blood Count 5.04 M/mcL (4.19-5.50); Red Cell Distribution Width 13.4 % (11.5-14.5)
[2018-01-01 07:11] LABS: BUN/Creatinine Ratio 9 (6-26); Blood Urea Nitrogen 8 mg/dL (6-20); Calcium 9.4 mg/dL (8.6-10.3); Carbon Dioxide 27 mEq/L (23-29); Chloride 106 mEq/L (98-107); Glucose 98 mg/dL (70-105); Osmolality,Calculated 288 (280-300); Potassium 3.9 mEq/L (3.5-5.1); Sodium 140 mEq/L (136-145); eGFR For African Americans > 60 (> 60); eGFR For Non-African Americans > 60 (> 60)
[2018-01-01] MEDS: cefTRIAXone 1,000 MG in Water for inj. (sterile) 20 ML 10 ML IVP SCH (08:00)
[2018-01-01] MEDS: Aspirin Enteric Coated 81 MG Tablet PO SCH (08:01)
[2018-01-01] MEDS: *HR* Enoxaparin 80 MG/0.8 ML SYRINGE SQ SCH (08:01)
--- NOTE | 2018-01-01 10:21 | Cardiology Progress Note ---
Date of Encounter: 01/01/18 Time of Encounter: 09:30 Assessment and Plan (1) Elevated troponin Current Visit: Yes Status: Acute Per Cardiology: History of nonobstructive CAD. [facility] 01/2015: Lesion Findings/Interventions * Left Main Coronary Artery The LMCA is angiographically free of disease. * Left Anterior Descending The LAD has minimal disease The 1st Diagonal is angiographically free of disease. * Circumflex - tortuous The Circumflex is angiographically free of disease. The 1st Marginal is angiographically free of disease. * Right Coronary Artery There is a 40% stenosis in the Proximal RCA. Presented with elevated troponin 0.09 x 3. Patient has been noncompliant with follow-up with cardiology with being last seen July 2015. Echo showed preserved EF , NSWMA. Discussed with thompson Olsen for potential stress test today with patient, however patient prefers to monitor and observe and follow- up in outpatient setting since he feels most of his symptoms are GI related and reports cousin had same symptoms. On aspirin and statin. We will sign off, re- consult as needed, follow-up arranged. (2) Pre-syncope Current Visit: Yes Status: Acute Per Cardiology: Reports "went out". Increased dizziness and lightheadedness. Significant smoking history and history CAD. No bruits noted. CD-- bilateral minimal nonstenotic plaque. Pacer check with no significant events. No events noted on telemetry. Orthostatics negative. SBP stable. (3) Artificial cardiac pacemaker Current Visit: Yes Status: Chronic Per Cardiology: History of permanent pacemaker for sick sinus syndrome with last device check November 2015 showing [employer] normal dual pacer check with battery longevity 9.5 years. Has not been compliant with follow-up-- pacer check ok, overall measurements ok with 205 episodes of NSVT since last checked in 2016. (4) Polysubstance abuse Current Visit: Yes Status: Chronic Per Cardiology: Tox screen positive for marijuana. Patient denies any other recreational drug use. Discussion w patient/family: The assessment and plan as outlined above was discussed with the patient who expressed understanding and agreement. All questions were answered. Thank you for involving us in the care of your patient. Please call with any questions. Subjective Principal diagnosis: LAWRENCE, CP Interval history: Patient reports still experiencing diarrhea. He reports his cousin also has same symptoms. He denies any chest pain, shortness of breath, palpitations. Denies any active bleeding. Objective Vital Signs, Last 4 Hours Temp Pulse Resp BP Pulse Ox 01/01/18 06:41 97.7 F 67 18 106/66 96 General: Conversant, No Apparent Distress HEENT: Atraumatic, Normocephaly Cardiac: Reg Rate and Rhythm, Normal S1 and S2, No Murmur Lungs: Normal Breath Sounds, No Wheeze, Rales, Rhonchi Neuro: Alert and responsive, No focal deficits noted Skin: No rashes noted on visualized skin Extremities: No Edema Results 01/01/18 05:46 01/01/18 05:46 Lab Results Laboratory Tests 12/29/17 12/30/17 12/30/17 20:24 03:26 10:05 Troponin I 0.09 H* 0.09 H* 0.09 H* Impressions Echocardiogram 12/30/17 10:46 Impressions: LVEF 55%. Normal LV chamber size, wall thickness and function. Mild right ventricular hypokinesis. No pulmonary hypertension. A device lead was visualized in the right atrium and right ventricle. Left Ventricular Wall Motion: Rest Echo Findings All wall segments showed normal motion. Findings: Study Quality * Technically adequate exam. ECG Findings * Normal sinus rhythm. Left Ventricle * LVEF 55%. * Normal LV chamber size, wall thickness and function. Right Ventricle * Mild right ventricular hypokinesis. Left Atrium * Normal left atrial size. Right Atrium * Normal right atrial size. Interatrial Septum * No evidence of PFO by color Doppler. Aortic Valve * Aortic valve not well visualized. Mitral Valve * Normal mitral valve structure and function. Tricuspid Valve * Mild tricuspid regurgitation. * Estimated RVSP is 25 mmHg. * Estimated RA pressure is 5 mmHg. * No pulmonary hypertension. Pulmonic Valve * Pulmonic valve not well visualized. Aorta * Normally sized aortic root. Pericardium * The pericardium appears normal. IVC * Normal IVC dimensions and inspiratory collapse. Device lead * A device lead was visualized in the right atrium and right ventricle. Active Medications Acetaminophen (Tylenol) 650 mg PO Q6HR PRN PRN Reason: Pain Stop: 07/01/18 00:36 Albuterol/Ipratropium (Duoneb) 3 ml IH QIDR DIANELYS Stop: 07/01/18 05:01 Last Admin: 01/01/18 04:53 Dose: 3 ml Aspirin (Aspirin Ec) 81 mg PO DAILY [facility] Stop: 07/02/18 09:01 Last Admin: 01/01/18 08:01 Dose: 81 mg Atorvastatin Calcium (Lipitor) 40 mg PO HS DIANELYS Stop: 07/01/18 21:01 Last Admin: 12/31/17 21:23 Dose: 40 mg Enoxaparin Sodium (Lovenox) 70 mg 1 mg/kg (70 mg) SQ Q12H DIANELYS PRN Reason: Protocol Stop: 07/01/18 10:01 Last Admin: 01/01/18 08:01 Dose: Not Given Hyoscyamine Sulfate (Levsin) 0.25 mg IVP QID PRN PRN Reason: abdominal pain Stop: 07/01/18 00:36 Azithromycin 500 mg/ Dextrose 250 mls @ 252 mls/hr IVPB Q24H DIANELYS Stop: 07/02/18 16:01 Last Infusion: 12/31/17 18:25 Dose: Infused Ceftriaxone Sodium 1,000 mg/ (Sterile Water) 10 mls @ 300 mls/hr IVP DAILY DIANELYS Stop: 07/02/18 16:01 Last Admin: 01/01/18 08:00 Dose: 300 mls/hr Naloxone HCl (Narcan) 0.4 mg IVP Q2MIN PRN PRN Reason: SEE COMMENTS Stop: 07/01/18 00:19 Ondansetron HCl (Zofran) 4 mg IVP Q6HR PRN; Protocol PRN Reason: Nausea Stop: 07/01/18 00:36 - Imaging and Cardiology Echo: report reviewed Other Results: Carotid duplex showed bilateral minimal nonstenotic plaque - EKG Interpretation EKG results cardiology: other (Sinus rhythm on telemetry, no events noted) Consult Discharge Plan - Plan Referrals: NONE,PCP [Primary Care Provider] -
--- NOTE | 2018-01-01 14:53 | Discharge Summary ---
Orders not resulted at time of discharge: Pending orders 12/30/17 06:00 ECG 12 lead ECG [ECG] AM 0600 Date of Encounter: 01/01/18 Time of Encounter: 15:17 - Discharge Diagnosis (1) Elevated troponin Priority: Primary Status: Acute Comments: troponin 0.09 x 3. Known history CAD and has been noncompliant with cardiology follow-up. Treated with therapeutic Lovenox while inpatient. Evaluated by cardiology who recommended left heart catheterization however patient preferred to follow up outpatient. Strongly encouraged medication and follow-up compliance. Cont ASA, statin (2) Nausea and vomiting Priority: Primary Status: Acute Comments: For 1 week prior to arrival with associated loose stools. Suspect secondary to gastroenteritis as patient reported family/friends with similar symptoms. Symptoms resolved with supportive care. GI panel ordered but not completed as stool was formed. All symptoms resolved at time of discharge. Qualifiers: Vomiting type: unspecified Vomiting Intractability: non-intractable Qualified Code(s): R11.2 - Nausea with vomiting, unspecified (3) Pre-syncope Priority: Primary Status: Acute Comments: With reported dizziness, lightheadedness and feeling as is he is going to pass out on day of presentation. [place] secondary to dehydration with suspected gastroenteritis. Symptoms improved with IV hydration. PPM check with no significant events. No evidence of orthostasis. Carotid Dopplers without significant stenosis. His symptom recurrence. (4) COPD (chronic obstructive pulmonary disease) Priority: Primary Status: Chronic Comments: Received 2 doses IV azithromycin, ceftriaxone for possible mild exacerbation as patient reported subjective fevers chills. Suspect symptoms secondary to gastroenteritis as noted above. No wheezing, no cough. No indication for ATB or steroids. Qualifiers: COPD type: unspecified COPD Qualified Code(s): J44.9 - Chronic obstructive pulmonary disease, unspecified Hospital course: Mr. Pelayo is a 47 year old male with PMH CAD who presented to [facility] on 2017 with complaints of nausea, vomiting and diarrhea. He was incidentally found to have elevated troponin. Evaluated by cardiology who recommended inpatient left heart catheterization our patient preferred to follow up outpatient. It was suspected that he had gastroenteritis as symptoms resolved with supportive care and reported recent sick contacts. He was discharged home in stable condition with outpatient follow-up. Please see assessment and plan for further details. - Time Spent with Patient Total time spent providing and/or coordinating discharge services: - Discharge Medications Prescriptions: Aspirin Enteric Coated [Aspirin EC] 81 mg PO DAILY #30 tablet. Atorvastatin [Lipitor] 40 mg PO HS #30 tablet Home Medications: Aspirin Enteric Coated [Aspirin EC] 81 mg PO DAILY #30 tablet. 01/01/18 [Rx] Atorvastatin [Lipitor] 40 mg PO HS #30 tablet 01/01/18 [Rx] Allergies/Adverse Reactions: 3 Allergy/AdvReac Type Severity Reaction Status Date / Time No Known Allergies Allergy Verified 12/30/17 15:26 Date of admission: 12/29/17 22:28 Primary care physician: PCP NONE Consults: 12/30/17 01:08 Consult to Cardiology [CONS] Routine Comment: Consulting Provider: Cardiology N[facility] Reason for Consult: elevated troponin. Consult per attending recommendation Call Completed: No Discharging clinician: Anabel Gramajo Anticipated date of discharge: 01/01/18 - Constitutional Vitals: Temp Pulse Resp BP Pulse Ox 98.2 F 61 18 107/69 96 01/01/18 11:06 01/01/18 11:06 01/01/18 11:11 01/01/18 11:06 01/01/18 11:11 General appearance: Present: A&O X 3, no acute distress - Head Head exam: Present: atraumatic, normocephalic - Eye Eye exam: Present: PERRL, conjuntiva pink, sclera anicteric Pupils: Present: PERRL - Neck Neck exam general surgery: Present: supple, trachea midline. Absent: lymphadenopathy - Respiratory Respiratory exam: Present: CTAB. Absent: accessory muscle use, rales, rhonchi, wheezes - Cardiovascular Cardiovascular exam: Present: RRR, +S1, +S2. Absent: diastolic murmur, gallop, rubs, systolic murmur - GI/Abdominal GI/Abdominal exam: Present: normal bowel sounds, soft, no peritoneal signs. Absent: distended, tenderness - Extremities Exam Extremities exam: Present: warm, radial pulses palpable and symmetrical. Absent : calf tenderness, cyanotic, pedal edema - Neurological Exam Neurological exam: Present: CN II-XII intact, oriented X3, no focal deficits. Absent: pronater drift, facial droop, speech deficit - Skin Skin exam: Present: dry, intact - Patient Status Disposition: Home, Self-Care Condition: Good Functional capacity at discharge: independent ambulation Overall status at discharge: patient is back to baseline - Discharge Instructions Instructions: Aspirin (By mouth), Atorvastatin (By mouth), Chest Pain (DC) Follow Up With: NONE,PCP [Primary Care Provider] - (Please call [phone]) Collin Ferguson, [Partnered Physician] - (Please call schedule a follow-up appointment within 2-3 weeks if you have not heard from the office.) - Diet and Activity Activity: increase activity as tolerated Diet: low fat, low cholesterol
[2018-01-01 16:04] VITALS: BP 130/81
--- NOTE | 2018-01-02 23:06 | Electrocardiograph Report ---
[place] [id number] Test Date: 2017-12-29 Pat Name: Michelet Pelayo Department: 104 Room: 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
--- NOTE | 2018-01-02 23:07 | Electrocardiograph Report ---
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
== END 2018-01-01 16:30 | disposition home or self-care (01) ==
LOC: 3BNU 19:20 → EMEROO 19:20 → 3BNU 23:02
PROVIDERS: ADMIT Internal Medicine; ATTEND Registered Nurse

== ENCOUNTER 2019-03-05 10:58 | Observation (INO) ==
[2019-03-05] MEDS ORDERED: Aspirin 81 MG TAB.CHEW PO ONE (11:10)
--- NOTE | 2019-03-05 11:35 | Emergency Department Note ---
Disposition Clinical Impression: ST segment changes on electrocardiogram Chest pain Qualifiers: Chest pain type: unspecified Qualified Code(s): R07.9 - Chest pain, unspecified Disposition: Admitted As Inpatient Condition: Fair Referrals: NONE,PCP [Primary Care Provider] - Forms: ED Satisfaction Letter Time of Disposition: 13:35 Chest Pain HPI - General Chief Complaint: ED Chest Pain Stated Complaint: chest pain Time Seen by Provider: 03/05/19 11:10 Source: patient, EMS Mode of arrival: EMS Limitations: no limitations Vital Signs Reviewed: Yes Nursing Notes Reviewed: Yes - History of Present Illness HPI Narrative: Patient presents emergency room from his PCPs office for evaluation of EKG changes and intermittent chest pain. He has a significant cardiac history. He was concerned and recommended they come emergency room for evaluation. Pt complaint: chest pain Onset (ago): day(s) Duration: intermittent Onset: during rest Pain Location: substernal Severity: none Severity scale (1-10): 0 Improves with: nothing Worsens with: nothing Treatments prior to arrival chest pain: none - Related Data Home Medications Medication Instructions Recorded Confirmed No Known Home Drugs 03/05/19 03/05/19 Allergies Allergy/AdvReac Type Severity Reaction Status Date / Time No Known Allergies Allergy Verified 12/30/17 15:26 All systems ED: reviewed and negative except as stated. Review of Systems: As Per HPI Constitutional: Denies: fever, chills, weakness ENT ED: Denies: congestion Cardiovascular: Reports: chest pain. Denies: palpitations, dyspnea on exertion, orthopnea Respiratory: Denies: cough, dyspnea, wheezes Gastrointestinal: Denies: abdominal pain, nausea, vomiting, diarrhea, constipation Genitourinary: Denies: urgency, dysuria, frequency Musculoskeletal: Denies: back pain, neck pain Integumentary: Denies: rash Neurological: Denies: headache Psychiatric: Denies: anxiety, depression Endocrine: Denies: fatigue Hematological/Lymphatic: Denies: easy bleeding Allergic/Immunologic: Denies: facial swelling Chest Pain PMH - Past Medical History Medical history: Reports: COPD, coronary artery disease, hyperlipidemia, hypertension Surgical history: Reports: herniorrhaphy Psychiatric history: Reports: anxiety, depression - Social History Smoking Status: Current every day smoker Alcohol use: Reports: none Drug use: Reports: marijuana Physical Exam - General Limitations: no limitations General appearance: alert - Head Head exam: atraumatic, normocephalic, normal inspection - Eye Eye exam: Present: normal appearance, PERRL, EOMI - ENT ENT exam: normal exam, normal oropharynx, mucous membranes moist - Neck Neck exam: Present: normal inspection, full ROM, trachea midline - Chest Chest inspection: Present: normal inspection, symmetric chest wall rise. Absent: tenderness - Respiratory Respiratory exam: Present: normal lung sounds bilaterally. Absent: respiratory distress, accessory muscle use - Cardiovascular Cardiovascular exam: Present: regular rate, normal rhythm, normal heart sounds - Abdominal Exam Abdominal exam: Present: soft, Non-Tender, normal bowel sounds. Absent: tenderness, distention, guarding, rebound, rigidity, Alarcon's sign, Rovsing's sign, tenderness at McBurney's Point - Extremities Exam Extremities exam: Present: normal inspection, full ROM. Absent: tenderness, normal capillary refill - Back Exam Back exam: Present: normal inspection - Neurological Exam Neurological exam: Present: alert, oriented X3, CN II-XII intact, normal gait - Skin Skin exam: Present: warm, dry, intact, normal color Course Course Narrative: Patient seen and examined the time arrival. See history of present illness. 48-year-old male presents emergency room for evaluation of chest pain. Patient has a significant history including sick sinus syndrome as well as myocardial infarction. Patient denies any recent illnesses. Denies any fevers or chills. He has not had any shortness of breath headache vision changes nausea vomiting or diarrhea. He has not had any medication changes at this time. He has not fallen or injured himself. Patient is currently denying chest pain. EKG was transported with hematemesis concerning findings with ST segment elevation to 3 aVF. He is currently atrially paced. Lungs are clear. Heart is regular. Pacemaker site appears to be stable no redness warmth or irritation noted. Abdomen is soft nontender nondistended. Patient denies any fevers or chills. His vital signs are stable. Extremities were normal no signs of pitting edema or abnormality. At this time cardiology was consult. The dimensional customer response representative Dr. Angelica Monreal and I reviewed the ECGs in conjunction. At this time she agrees with the chest pain as well as the morphology. Patient will be evaluated with EKGs CBC chemistry troponin and BNP along with started on a heparin drip prophylactically secondary to the presentation at this time. Patient only takes an aspirin. No other acute abnormalities noted at this point. Patient is otherwise clinically stable. - Reevaluation(s) Reevaluation #1: Patient has a troponin of 0.19. Epidermis been started this time. Patient denies any recent bleeding or other issues. Cardiology was contacted again. Dr. Ferguson and I reviewed the case. They are coming down to evaluate the patient here in the emergency department. Patient will require admission. Patient is still not having any pain at this time. 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 Time: 12:57 Reevaluation #2: Patient was discussed with the hospitalist Dr. Gómez area detailed review the presentation symptoms medical history and intervention were discussed at length. Patient has been started on a heparin drip and has remained asymptomatic while here. Cardiology is attempting to determine whether or not the patient will require catheterization here today. Patient will be admitted for management and then cardiac consultation. Counseled order was placed for cardiology at this time. Patient is otherwise clinically stable Vital Signs Temperature 97.8 F 03/05/19 11:08 Pulse Rate 62 03/05/19 11:08 Respiratory Rate 17 03/05/19 11:08 Blood Pressure 130/111 03/05/19 11:08 O2 Sat by Pulse Oximetry 99 03/05/19 11:08 Temperature 97.8 F 03/05/19 11:08 Pulse Rate 79 03/05/19 12:37 Respiratory Rate 17 03/05/19 11:08 Blood Pressure 109/82 03/05/19 12:37 O2 Sat by Pulse Oximetry 96 03/05/19 12:37 Oxygen Delivery Oxygen Delivery Room Air Chest Pain - Medical Records Medical records reviewed: Yes I reviewed the patient's medical records. - Lab Data Lab results reviewed: Yes I reviewed the patient's lab results. Result diagrams: 03/05/19 12:28 03/05/19 11:25 Lab Results 03/05/19 03/05/19 03/05/19 Range/Units 11:25 11:25 11:25 WBC 6.8 (4.3-11.1) K/mcL RBC 4.91 (4.19-5.50) M/mcL Hgb 14.8 (12.9-16.9) g/dL Hct 43.9 (37.5-50.1) % MCV 89.4 (83.0-100.0) fL MCH 30.1 (28.0-33.3) pg MCHC 33.7 (31.6-35.5) g/dL RDW 14.5 (11.5-14.5) % Plt Count 212 (140-400) K/mcL MPV 8.6 L (9.4-12.4) fL Immature Gran % 0.1 (0-4) % Seg Neutrophils % 57.5 % Lymphocytes % 28.5 % Monocytes % 5.4 % Eosinophils % 7.2 % Basophils % 1.3 % Neutrophils # 3.9 (1.6-8.9) K/mcL Lymphocytes # 1.9 (0.6-4.6) K/mcL Monocytes # 0.4 (0.0-1.3) K/mcL Eosinophils # 0.5 (0.0-0.6) K/mcL Basophils # 0.1 (0.0-0.2) K/mcL PT 11.2 (9.4-12.1) Seconds INR 1.0 APTT 35.7 (26.0-36.0) Seconds Heparin Anti-Xa, Unfract (0.30-0.70) IU/mL Sodium (136-145) mEq/L Potassium (3.5-5.1) mEq/L Chloride (98-107) mEq/L Carbon Dioxide (23-29) mEq/L BUN (6-20) mg/dL Creatinine (0.70-1.30) mg/dL Est GFR ( Amer) (> 60) Est GFR (Non-Af Amer) (> 60) BUN/Creatinine Ratio (6-26) Glucose (70-105) mg/dL Calculated Osmolality (280-300) Calcium (8.6-10.3) mg/dL Troponin I (< 0.04) ng/mL B-Natriuretic Peptide 27 (Less than 100) pg/mL 03/05/19 03/05/19 03/05/19 Range/Units 11:25 12:28 12:28 WBC 6.5 (4.3-11.1) K/mcL RBC 4.83 (4.19-5.50) M/mcL Hgb 14.6 (12.9-16.9) g/dL Hct 43.3 (37.5-50.1) % MCV 89.6 (83.0-100.0) fL MCH 30.2 (28.0-33.3) pg MCHC 33.7 (31.6-35.5) g/dL RDW 14.5 (11.5-14.5) % Plt Count 227 (140-400) K/mcL MPV 9.0 L (9.4-12.4) fL Immature Gran % (0-4) % Seg Neutrophils % % Lymphocytes % % Monocytes % % Eosinophils % % Basophils % % Neutrophils # (1.6-8.9) K/mcL Lymphocytes # (0.6-4.6) K/mcL Monocytes # (0.0-1.3) K/mcL Eosinophils # (0.0-0.6) K/mcL Basophils # (0.0-0.2) K/mcL PT 11.0 (9.4-12.1) Seconds INR 1.0 APTT (26.0-36.0) Seconds Heparin Anti-Xa, Unfract 0.01 L (0.30-0.70) IU/mL Sodium 138 (136-145) mEq/L Potassium 4.2 (3.5-5.1) mEq/L Chloride 107 (98-107) mEq/L Carbon Dioxide 26 (23-29) mEq/L BUN 6 (6-20) mg/dL Creatinine 0.82 (0.70-1.30) mg/dL Est GFR ( Amer) > 60 (> 60) Est GFR (Non-Af Amer) > 60 (> 60) BUN/Creatinine Ratio 7 (6-26) Glucose 100 (70-105) mg/dL Calculated Osmolality 284 (280-300) Calcium 9.0 (8.6-10.3) mg/dL Troponin I 0.19 H* (< 0.04) ng/mL B-Natriuretic Peptide (Less than 100) pg/mL - Radiology Data Radiology results reviewed: Yes I reviewed the patient's radiology results. Chest x-ray is otherwise unremarkable. No acute pathology. - EKG Data EKG attestation: Yes I reviewed and interpreted this EKG. EKG results narrative: EKG shows atrially paced rhythm. Heart rate of 62. VA interval 167. QRS duration of 90. QTC of 440. Concerning findings with ST segment elevation to 3 aVF with no reciprocal changes at this time. Early repolarization is a consideration. This is compared to a previous EKG on 12/29/17. This was also reviewed with the on-call customer response representative Dr. Angelica Monreal at 1115. Heart Score - Score History: Moderately Suspicious EKG: Significant ST-Depression Age: 45-65 Risk Factors: Equal/Greater than 3 risk factor or history of atherosclerotic disease Troponin: Less than normal limit HEART Score Total: 6 Critical Care Time Critical Care Time: Yes Total Critical Care Time: 45 Attestation: Critical care performed: Time is exclusive of separately billable procedures. Time includes: direct patient care, patient reassessment, coordination of patient care, interpretation of data (laboratory data, radiology data, and respiratory data), review of patient's medical records, medical consultation and documentation of patient care. Procedures included in critical care time: Procedures excluded from critical care time:
[2019-03-05 11:38] LABS: Basophils # 0.1 K/mcL (0.0-0.2); Basophils % 1.3 %; Eosinophils # 0.5 K/mcL (0.0-0.6); Eosinophils % 7.2 %; Hematocrit 43.9 % (37.5-50.1); Hemoglobin 14.8 g/dL (12.9-16.9); Immature Granulocytes % 0.1 % (0-4); Lymphocytes # 1.9 K/mcL (0.6-4.6); Lymphocytes % 28.5 %; Mean Corpuscular HGB Conc 33.7 g/dL (31.6-35.5); Mean Corpuscular Hemoglobin 30.1 pg (28.0-33.3); Mean Corpuscular Volume 89.4 fL (83.0-100.0); Mean Platelet Volume 8.6 fL (9.4-12.4); Monocytes # 0.4 K/mcL (0.0-1.3); Monocytes % 5.4 %; Neutrophils # 3.9 K/mcL (1.6-8.9); Platelet Count 212 K/mcL (140-400); Red Blood Count 4.91 M/mcL (4.19-5.50); Red Cell Distribution Width 14.5 % (11.5-14.5); Segmented Neutrophils % 57.5 %
[2019-03-05 11:50] LABS: Prothrombin Time 11.2 Seconds (9.4-12.1)
[2019-03-05 11:53] LABS: Activated Partial Thrombo Time 35.7 Seconds (26.0-36.0)
[2019-03-05 12:00] LABS: BUN/Creatinine Ratio 7 (6-26); Blood Urea Nitrogen 6 mg/dL (6-20); Carbon Dioxide 26 mEq/L (23-29); Chloride 107 mEq/L (98-107); Glucose 100 mg/dL (70-105); Osmolality,Calculated 284 (280-300); Potassium 4.2 mEq/L (3.5-5.1); Sodium 138 mEq/L (136-145); eGFR For Non-African Americans > 60 (> 60)
[2019-03-05 12:18] LABS: Troponin I 0.19 ng/mL (< 0.04)
[2019-03-05] MEDS ORDERED: *HR* Heparin 5,000 UNIT/ML VIAL IVP ONE (12:18)
[2019-03-05] MEDS ORDERED: *HR* Heparin 5,000 UNIT/ML VIAL IVP PRN ×2 (12:18)
[2019-03-05] MEDS ORDERED: Heparin 25,000 UNIT/250 ML D5W 25,000 UNIT/250 ML IV.SOLN IVC SCH (12:30)
[2019-03-05 12:44] LABS: Hematocrit 43.3 % (37.5-50.1); Hemoglobin 14.6 g/dL (12.9-16.9); Mean Corpuscular HGB Conc 33.7 g/dL (31.6-35.5); Mean Corpuscular Hemoglobin 30.2 pg (28.0-33.3); Mean Corpuscular Volume 89.6 fL (83.0-100.0); Platelet Count 227 K/mcL (140-400); Red Blood Count 4.83 M/mcL (4.19-5.50); Red Cell Distribution Width 14.5 % (11.5-14.5)
[2019-03-05 12:51] LABS: Heparin anti-factor XA UFH 0.01 IU/mL (0.30-0.70)
--- NOTE | 2019-03-05 13:11 | Cardiology Consult Note ---
Date of Encounter: 03/05/19 Time of Encounter: 13:09 Assessment and Plan (1) Elevated troponin Current Visit: No Status: Acute Pt presents with chest pain with atypical and typical features. Pain ongoing for over two weeks. EKG reviewed and shows atrial pacing. Likely early repolarization. Old EKG without pacing. Troponin elevated at 0.19. Findings concerning for NSTEMI. Prior cardiac testing: Stress test 2017- Negative for ischemia or infarct. TTE Echo 12/2017: LVEF 55%. Normal LV chamber size, wall thickness and function. Mild right ventricular hypokinesis. No pulmonary hypertension. A device lead was visualized in the right atrium and right ventricle. Carotid 12/2017: Bilateral carotid system is essentially normal. [facility] 2014: Non-obstructive CAD. 40% stenosis RCA. Recommend asa, statin, and bb. Continue heparin gtt and SL NTG PRN pain. Check TTE. [facility] recommended. R/B/A of [facility] reviewed. Patient agrees with plan. He is currently pain free. (2) Artificial cardiac pacemaker Current Visit: No Status: Chronic H/o SSS . PPM placed 4 years ago. Discussion w patient/family: The assessment and plan as outlined above was discussed with the patient and/or family members who expressed understanding and agreement. All questions were answered. Thank you for involving us in the care of your patient. Please call with any questions. History of Present Illness Consult date: 03/05/19 Requesting physician: Papo Corley Consult reason: chest pain, EKG changes Chief complaint: chest pain History of present illness: Mr. Pelayo is a 48 year old male with PMH significant for mild non-obstructive CAD on [facility] in 2013, sss s/p PPM, HTN, HLD, and tobacco use. He presents from the resident clinic with concern for ongoing chest pain , SOB, dizziness, and diaphoresis for the past 15 days. Symptoms occur at rest and with exertion. He also c/o dilated neck veins, peripheral edema, and orthopnea. He is noted to have soreness around his ppm site and pain with cough. C/o chronic cough that has increased. 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 He continues to smoke a pack of cigarettes a day. He states that he does not take his prescribed meds but is willing to take now. Past Med Surg Social Fam HX - Past Medical History Medical history: COPD, coronary artery disease, hyperlipidemia, hypertension Additional medical history: back problems Psychiatric history: anxiety, depression - Past Surgical History Surgical History: herniorrhaphy Additional surgical history: "Heart Fibiator" - Social History Smoking Status: Current every day smoker Smokeless Tobacco Status: No Alcohol use: none Drug use: marijuana - Family History Father Adopted: No Family Member Ethnicity: Non- Living Status: Hx Family Cardiac Disorders: Yes Medications and Allergies No Known Home Drugs 03/05/19 [History] Allergy/AdvReac Type Severity Reaction Status Date / Time No Known Allergies Allergy Verified 12/30/17 15:26 All Systems Review: The remainder of the systems were reviewed and are negative Physical Examination Vital Signs, Last 4 Hours Temp Pulse Resp BP Pulse Ox 03/05/19 12:37 79 109/82 96 03/05/19 11:18 97 03/05/19 11:08 97.8 F 62 17 130/111 99 General: Conversant, No Apparent Distress HEENT: Atraumatic, Normocephaly, Mucus Membranes Moist Neck: No JVD, Normal carotid pulses Cardiac: Reg Rate and Rhythm, Normal S1 and S2, No Murmur Lungs: Normal Breath Sounds, No Wheeze, Rales, Rhonchi Neuro: Alert and responsive, No focal deficits noted Abdomen: Soft, Non-Tender Skin: No rashes noted on visualized skin Musculoskeletal: No Chest Wall Tenderness Extremities: No Clubbing, No Cyanosis, No Edema, Normal Pulses Results 03/05/19 12:28 03/05/19 11:25 Lab Results 03/05/19 03/05/19 03/05/19 11:25 11:25 11:25 WBC 6.8 Hgb 14.8 Hct 43.9 Plt Count 212 INR 1.0 APTT 35.7 Sodium Potassium Chloride Carbon Dioxide BUN Creatinine Glucose Calcium Troponin I B-Natriuretic Peptide 27 03/05/19 03/05/19 03/05/19 11:25 12:28 12:28 WBC 6.5 Hgb 14.6 Hct 43.3 Plt Count 227 INR 1.0 APTT Sodium 138 Potassium 4.2 Chloride 107 Carbon Dioxide 26 BUN 6 Creatinine 0.82 Glucose 100 Calcium 9.0 Troponin I 0.19 H* B-Natriuretic Peptide - Imaging and Cardiology Stress Test: report reviewed Echo: report reviewed - EKG Interpretation EKG results cardiology: personally reviewed Consult Discharge Plan - Plan
[2019-03-05] MEDS ORDERED: Nitroglycerin 0.4 MG TAB.SUBL SL PRN (14:22)
[2019-03-05] MEDS ORDERED: Naloxone 0.4 MG/ML INJ IVP PRN (15:14)
[2019-03-05] MEDS ORDERED: *HR* HYDROcodone/Acet 5/325 mg TABLET PO PRN (15:14)
[2019-03-05] MEDS ORDERED: Ondansetron 4 MG/2 ML VIAL IVP PRN (15:14)
[2019-03-05] MEDS ORDERED: Acetaminophen 325 MG TABLET PO PRN (15:14)
[2019-03-05] MEDS ORDERED: *HR* Heparin 10,000 UNIT/10 ML VIAL ONE (15:33)
[2019-03-05] MEDS ORDERED: Heparin 1,000 UNITS/500 mL 500 ML ONE (15:33)
[2019-03-05] MEDS ORDERED: ISOVUE-370 200 ML INFUS..BTL ONE (15:33)
[2019-03-05] MEDS ORDERED: Nitroglycerin 1,000 MCG/10 ML VIAL IV ONE (15:33)
[2019-03-05] MEDS ORDERED: 0.9 % Sodium Chloride 2,000 ML ONE (15:33)
--- NOTE | 2019-03-05 15:39 | Internal Med History&Physical ---
Date of Encounter: 03/05/19 Time of Encounter: 15:34 Internal Medicine - H&P: HPI Chief complaint: chest pain Admitted From: Emergency Dept Plans for Post Hospital Care: Home History of present illness: Mr. Pelayo is a 48 year old male with PMH of mild non-obstructive CAD on [facility] in 2013, sick sinus syndrome s/p PPM, HTN, and chronic tobacco dependence, currently not on any medical therapy for his HTN, pt was sent to ER from the primary care physicians's office for chest pain and EKG changes. Patient stated from last 2 weeks has been having intermittent chest pain which seems to progressive worsening now. His chest pain located sub sternal and left chest wall region, 6 out of 10 in severity and non radiating. His CP was also associated with shortness of breath, dizziness and diaphoresis. In the emergency room his EKG showed atrial flutter lipase rhythm with ST, T changes due to possible some early depolarization changes. His initial Trop @ 0.19. He denied any active CP Now. Past Med Surg Social Fam HX - Past Medical History Medical history: COPD, coronary artery disease, hyperlipidemia, hypertension Additional medical history: back problems Psychiatric history: anxiety, depression - Past Surgical History Surgical History: herniorrhaphy Additional surgical history: "Heart Fibiator" - Social History Smoking Status: Current every day smoker Smokeless Tobacco Status: No Alcohol use: none Drug use: marijuana - Family History Father Adopted: No Family Member Ethnicity: Non- Living Status: Hx Family Cardiac Disorders: Yes Internal Medicine - H&P: Meds No Known Home Drugs 03/05/19 [History] Allergy/AdvReac Type Severity Reaction Status Date / Time No Known Allergies Allergy Verified 12/30/17 15:26 All Systems PM: A 10-system review of systems was performed and is negative for pertinent findings except as documented above in the HPI. Review of systems: All the systems are reviewed everything is benign except the systems and symptoms I mentioned in the history of present illness - Constitutional Vitals: Temp Pulse Resp BP Pulse Ox 97.8 F 79 18 93/68 96 03/05/19 11:08 03/05/19 12:37 03/05/19 14:00 03/05/19 14:00 03/05/19 12:37 General appearance: Present: cooperative, A&O X 3, no acute distress, answers questions appropriately Exam: a - Head Head exam: Present: atraumatic, normal inspection - Neck Neck exam general surgery: Present: supple - Respiratory Respiratory exam: Present: decreased breath sounds. Absent: rales, respiratory distress, rhonchi, wheezes - Cardiovascular Cardiovascular exam: Present: RRR, +S1, +S2. Absent: tachycardia - GI/Abdominal GI/Abdominal exam: Present: normal bowel sounds, soft. Absent: rebound, rigid, tenderness - Extremities Exam Extremities exam: Absent: calf tenderness, pedal edema, tenderness - Back Exam Back exam: Absent: CVA tenderness (L), CVA tenderness (R) - Neurological Exam Neurological exam: Present: alert, oriented X3, no focal deficits. Absent: speech deficit - Psychiatric Psychiatric exam: Present: normal affect, normal mood - Skin Skin exam: Absent: rash Internal Med - H&P Results - Labs CBC & Chem 7: 03/05/19 12:28 03/05/19 11:25 Labs: Short CBC 03/05/19 03/05/19 Range/Units 11:25 12:28 WBC 6.8 6.5 (4.3-11.1) K/mcL Hgb 14.8 14.6 (12.9-16.9) g/dL Hct 43.9 43.3 (37.5-50.1) % Plt Count 212 227 (140-400) K/mcL Neutrophils # 3.9 (1.6-8.9) K/mcL BMP 03/05/19 11:25 Sodium 138 Potassium 4.2 Chloride 107 Carbon Dioxide 26 BUN 6 Creatinine 0.82 Glucose 100 Calcium 9.0 Cardiac Enzymes 03/05/19 Range/Units 11:25 Troponin I 0.19 H* (< 0.04) ng/mL - Impressions ITS Impressions Chest X-Ray 03/05/19 11:10 IMPRESSION: Stable exam. No new acute cardiopulmonary findings. Emphysema. D/ / Jennifer Johnston MD / Jennifer Johnston MD Interpreting Provider: Jennifer Johnston MD - Assessment and Plan (1) NSTEMI (non-ST elevated myocardial infarction) Current Visit: Yes Status: Acute Assessment and plan: Will admit the pt into Tele for NSTEMI His CP, Elevated Trop @ 0.19 and EKG changes are concerning for NSTEMI Will place pt on cardiac technician check serial troponin EKG from ER reviewed by my self - Atrial paced rythm and early repolarization changes noticed will start pt on ASA and Nitro PRN started him on Lipitor Will check FLP in AM Card consulted.. Appreciate recommendations since patient is high risk with NSTEMI Card is planning on doing LHC today itself NPO for now (2) Chest pain Current Visit: Yes Status: Acute Assessment and plan: As above Qualifiers: Chest pain type: chest pain due to myocardial ischemia Ischemic chest pain type: unstable angina pectoris Qualified Code(s): I20.0 - Unstable angina (3) Tobacco dependence Current Visit: Yes Status: Acute Assessment and plan: Counseled to quit smoking placed on nicotine patch (4) Artificial cardiac pacemaker Current Visit: No Status: Chronic (5) COPD (chronic obstructive pulmonary disease) Current Visit: No Status: Chronic Assessment and plan: Not in exacerbation will put him on neb treatments as needed Qualifiers: COPD type: unspecified COPD Qualified Code(s): J44.9 - Chronic obstructive pulmonary disease, unspecified - Time Spent With Patient Total time spent is greater than 50% in coordination of care (as documented) at patient's floor/unit and/or counseling patient:
--- NOTE | 2019-03-05 15:51 | Pre-Sedation Evaluation ---
Pre-sedation evaluation - Pre-sedation checklist Date of procedure: 03/05/19 Procedure: Left heart cath Recent Vitals: Last Vital Signs Temp 98.1 F 03/05/19 15:43 Pulse 72 03/05/19 15:43 Resp 14 03/05/19 15:43 BP 112/75 03/05/19 15:43 Pulse Ox 97 03/05/19 15:43 H&P (including ROS) documented in medical record: Yes Previous reaction to sedatives/anesthetics: No Dietary Status: Clear fluids after Midnight Airway Assessment: Patient can open mouth completely, TMJ function normal, Micrognathia (under-bite, receding chin) absent, Neck with adequate range of motion Dentition: poor dentition Possible difficult airway: No ASA Classification *see protocol: CLASS II-Mild systemic disease Plan of Care: Pt appropriate candidate for procedure/moderate/conscious sedation, Risks/benefits of procedure/sedation discussed w/ patient/family Cardiac Registry (Cardio Only) - Functional Capacity Functional Capacity: < 4 METS - Clincal Frailty Scale Clinical Frailty Scale: Managing Well
[2019-03-05] MEDS ORDERED: *HR* Midazolam HCl 2 MG/2 ML VIAL ONE (16:00)
[2019-03-05] MEDS ORDERED: *HR* FentaNYL (PF) 100 MCG/2 ML VIAL ONE (16:00)
[2019-03-05] MEDS: Nicotine 21 MG PATCH.TD24 TD SCH (16:10)
[2019-03-05] MEDS ORDERED: Isovue-370 500 ML BOTTLE IVP ONE (16:30)
--- NOTE | 2019-03-05 16:39 | Invasive Diagnostic Lab Proc ---
Name: Michelet Pelayo Date of Study: 03/05/2019 Date: 1970 Ht: 72.0in Medical Record#: [id number] Age: 48 Wt: 145.51lb Gender: Male BSA: 1.86 Order #: [id number] BMI: 19.71 Physicians Procedure Physician: Angelica Monreal MD, [facility] Referring MD: Referring MD: Staff Name [facility] Monitor 04:01 PM Winston Chandler RN Credit And Collection Manager 04:01 PM Lizzette Santacruz RT (R) Scrub 04:01 PM Angelica Farooq RT (R) Scrub 04:01 PM Indications Indication Non-Stemi Procedures Performed Procedure L HRT ARTERY/VENTRICLE ANGIO Pre-Procedure Checklist Informed consent is complete signed and on chart. H&P is on chart. ID band is on and ID verified with patient. Patient NPO for procedure The procedure was described for the patient and questions were answered. ECG is on chart. Rhythm: NSR Plan of Care Patient will tolerate the procedure without complications. Adequate level of comfort will be maintained. Hemodynamics will remain stable Patient will recover from procedure without complications. Respiratory function will be maintained. Cardiac rhythm will remain stable. Patient temperature will be maintained. Patient and/or family have verbalized understanding of the procedure. Patient Education Chief Complaint/Reason for Test: Cardiac Cath Developmental Category: Adult (18-64 years) Developmentally Appropriate for Age: Yes Learning Barriers: None Education Needs: Procedure Education Method: Verbal Information Taught: Cardiac Cath Educational Evaluation: Able to repeat information Intravenous Access Time IV Size Location DC'd Fluid/Drip Rate Units RN 18g 1 10/19" Patent On Arrival Lt Antecubital 0.9NaCl 25 ml/hr Winston Chandler RN Allergies No Known Allergies Vital Signs Time BP (mmHg) HR (bpm) O2 Sat. RR (bpm) LOC 04:02 PM / % 5 = Fully awake and oriented or at pre-proc level 04:02 PM / % 4 = Oriented but drowsy 04:06 PM 121 / 87 60 96 % 10 04:11 PM 111 / 64 68 94 % 14 04:15 PM 105 / 70 60 93 % 21 04:20 PM 105 / 64 67 92 % 16 Procedural Medications Time Medication Dose Units Method Given By 04:08 PM Oxygen 2 L/min nasal cannula Winston Chandler RN 04:08 PM Versed 2 mg Intravenous Winston Chandler RN 04:08 PM Fentanyl 50 mcg Intravenous Winston Chandler RN 04:16 PM Lidocaine 2% 17 ml Subcutaneous Angelica Monreal MD, [facility] ASA Classification: CLASS II- Mild systemic disease (i.e. well-controlled diabetes, hypertension, asthma, cigarette smoking) Francine Score Preprocedure Postprocedure Activity 2- Moves 4 extremities sustained head lift Activity 2- Moves 4 extremities sustained head lift Circulation 2- SBP +/= 20 points of pre-anesthetic level Circulation 2- SBP +/= 20 points of pre-anesthetic level Consciousness 2- Awake and alert oriented x 3 Consciousness 2- Awake and alert oriented x 3 O2 Saturation 2- Able to maintain O2 satruation of 92% on room air O2 Saturation 2- Able to maintain O2 satruation of 92% on room air Respiratory 2- Able to deep breathe and cough well Respiratory 2- Able to deep breathe and cough well Total Score 10 Total Score 10 Contrast Agent: Isovue Diagnostic Contrast: 49 ml Total Contrast: 49 ml Fluoro Dose: 8 mGy Procedure Log Time Note Enter By 03:36 PM CathStat 04:01 PM Pt arrived to production laborer 2 at 16:01 04:01 PM Sowmya Leggett RN Position: Monitor Time in: 16: 04:01 PM Winston Chandler RN Position: Credit And Collection Manager Time in: 16: 04:01 PM Lizzette Santacruz RT (R) Position: Scrub Time in: 16:mm 04:01 PM Angelica Farooq RT (R) Position: Scrub Time in: 16: 04:02 PM Time: 16:02 Patient comfortable and pain free: Yes 04:02 PM Time: 16:02LOC: 5 = Fully awake and oriented or at pre-proc level tsoumm 04:02 PM Physician arrived 16: 04:02 PM Patient charges- Angio tray pack, Navilyst 3mm J, Pulse Oximetry and ACIST tubing and transducer oumm 04:02 PM Meet and greet completed mm 04:02 PM Sign in performed according to hospital policy. Informed consent was obtained. mm 04:02 PM Procedure start 16: 04:05 PM Vitals capture started with the following parameters, Patient=Adult, Interval=5 min, Initial Tnskwhzm=567 mmHg, Deflation Rate=5 mmHg, Cuff placed on Left Arm 04:06 PM HR=60 bpm, NWBD=329/87 mmhg, SpO2=96.0 %, Resp=10 B/min 04:08 PM Time: 16:08 Oxygen on at 2 L/min per nasal cannula by Winston Chandler RN 04:08 PM Time: 16:08 Versed 2 mg Intravenous Given by Winston Chandler RN 04:08 PM Time: 16:08 Fentanyl 50 mcg Intravenous Given by Winston Chandler RN 04:11 PM HR=68 bpm, WGCS=360/64 mmhg, SpO2=94.0 %, Resp=14 B/min 04:13 PM Recorded ECG: HR=68 Condition=Condition 1 04:13 PM Hair removed from procedure site in procedure lab using clippers. Bilateral groin prepped with Chloraprep by Sowmya Leggett RN, then patient was draped. Skin intact. tsmmers 04:15 PM Time out was performed according to hospital policy. Conscious sedation and anesthesia was achieved (see medication log with in this report above) tsoummers 04:15 PM Recorded ECG: HR=62 Condition=Condition 1 04:15 PM Pressure channel 1 zeroed. 04:15 PM HR=60 bpm, UBOO=250/70 mmhg, SpO2=93.0 %, Resp=21 B/min 04:16 PM Time: 16:16 17 ml Lidocaine 2% to right groin Subcutaneous Given by Angelica Monreal MD, [facility] 04:16 PM Access obtained by percutaneous puncture. 5Fr 10cm Terumo [place] sheath placed in right Femoral artery. [id number] oumm 04:16 PM 0.035 145cm Navilyst 3mmJ wire [id number] mm 04:17 PM 5Fr FL 4 catheter inserted over the wire [facility] 04:17 PM Time: 16:02LOC: 4 = Oriented but drowsy tsoumm 04:18 PM wire removed [facility] 04:18 PM LCA angiography performed in multiple views. mm 04:18 PM Recorded Pressure: Ao, HR=62, Condition=Condition 1 (Aorta) Ao 94/69/81 04:19 PM Catheter removed [facility] 04:19 PM 5Fr FR 4 catheter inserted over the wire [facility] 04:20 PM RCA angiography performed in multiple views. 04:20 PM HR=67 bpm, KTZP=451/64 mmhg, SpO2=92.0 %, Resp=16 B/min 04:21 PM Catheter removed [facility] 04:21 PM 5Fr Pigtail catheter inserted over the wire [facility] 04:21 PM Catheter crossed the aortic valve and was selectively placed in the left ventricle. Pressures recorded on pullback for left heart catheterization. [facility] 04:21 PM Pressure channel 1 zeroed. 04:22 PM Bolus angiogram of left Ventricle complete: 8 ml/sec for a total of [address] [facility] 04:22 PM Recorded Pressure: LV, HR=65, Condition=Condition 1 (Left Ventricle) LV 96/-12/4 04:[address] [facility] 04:22 PM Recorded Pressure: LV, Ao, HR=66, Condition=Condition 1 (Left Ventricle) LV 86/-1/8, (Aorta) Ao 90/63/78 04:23 PM Time: 16:08 Patient comfortable and pain free: Yes [facility] 04:23 PM Coronary Dominance: Co-dominant [facility] 04:23 PM Bolus angiogram of right Femoral complete: 2 ml/sec for a total of [address] [facility] [facility] 04:23 PM Procedure completed at 16:23 03/05/2019[facility] 04:24 PM Did you address TALA flow and Dominance? YesCoronary Dominance: Co-dominant tsmmers 04:25 PM Sign out completed: Radiation Dose 54.55 mGy, 8.22 Gy/cm2 Fluoro Time: 1.2 Isovue 370 - 200ml contrast 49 ml given by Angelica Monreal MD, [facility]. Complications: None. The patient was discharged out of the helper animal laboratory in stable condition. Sedation minutes 17. Cardiac Rehab Consult needed: No. Confirmed administered medications: Yes [facility] 04:25 PM Isovue 370 - 200ml,1 Bottle(s) used. [facility] 04:25 PM Arterial sheath pulled, Mynx closure device used and was Successful [id number] S/N. tsoumm 04:25 PM Estimated Blood Loss: minimal tsoummers 04:25 PM Post ECG NSR tsoummers 04:26 PM Post Blood Pressure 103/67 tsoummers 04:26 PM Information taught Cardiac Cath and Mynx tsoumm 04:26 PM Education needs Procedure, Plan of Care, and Responsibilities of Patient in Care tsoummers 04:26 PM Learning barriers :None tsoummers 04:26 PM Education Methods Verbal tsoummers 04:26 PM Education evaluation Able to repeat information oumm 04:28 PM Plavix, Effient or Brilinta given No tsoummers 04:28 PM Delay to floor No tsoummers 04:28 PM no family present tsoummers 04:28 PM Report given to Kristi LARA Pt taken to 3B Room #38. 16:28 tsoummers 04:29 PM Site status No bleeding/hematoma - Rt Groin as reported by Sites, Lizzette RT (R) at 16:29 tsoummers 04:29 PM Opsite applied tsmm 04:30 PM Patient out of room: 16:30 [facility] Complications Complication None Hemodynamics Pressures Site Systolic/A Wave Diastolic/V Wave Mean AO 94 69 81 LV 96 -12 4 LV 86 -1 8 AO 90 63 78 Post Procedure Information Blood Pressure: 103/67 mmHg Rhythm: NSR Post procedural instructions were given Closure Device Time Device Success/Fail 03/05/2019 4:26:00 PM MynxGrip Site Checks Time Location Status Staff Sheath In? Note 04:29 PM Rt Groin No bleeding/hematoma Sites, Lizzette RT (R) Pulses Time Site Pre-Procedure Post-Procedure Note Bilateral DP & PT 2+ Updated by Sowmya Leggett RN on 03/05/2019 4:30:05 PM electronically signed on 03/05/2019 4:30:36 PM with status of Final
[2019-03-05] MEDS ORDERED: Perflutren Lipid Microsphere 1.3 ML in 0.9 % Sodium Chloride 8.7 ML IVP ONE (19:59)
[2019-03-06 00:37] LABS: Basophils # 0.1 K/mcL (0.0-0.2); Basophils % 1.1 %; Eosinophils # 0.5 K/mcL (0.0-0.6); Eosinophils % 5.5 %; Hematocrit 40.7 % (37.5-50.1); Hemoglobin 13.7 g/dL (12.9-16.9); Immature Granulocytes % 0.2 % (0-4); Lymphocytes # 2.7 K/mcL (0.6-4.6); Lymphocytes % 31.8 %; Mean Corpuscular HGB Conc 33.7 g/dL (31.6-35.5); Mean Corpuscular Hemoglobin 30.2 pg (28.0-33.3); Mean Corpuscular Volume 89.8 fL (83.0-100.0); Mean Platelet Volume 8.9 fL (9.4-12.4); Monocytes # 0.6 K/mcL (0.0-1.3); Monocytes % 6.9 %; Neutrophils # 4.7 K/mcL (1.6-8.9); Platelet Count 212 K/mcL (140-400); Red Blood Count 4.53 M/mcL (4.19-5.50); Red Cell Distribution Width 14.6 % (11.5-14.5); Segmented Neutrophils % 54.5 %
[2019-03-06 00:52] LABS: BUN/Creatinine Ratio 11 (6-26); Blood Urea Nitrogen 11 mg/dL (6-20); Carbon Dioxide 26 mEq/L (23-29); Chloride 106 mEq/L (98-107); Glucose 108 mg/dL (70-105); Sodium 138 mEq/L (136-145); eGFR For Non-African Americans > 60 (> 60)
[2019-03-06 00:53] LABS: Chol/HDL Ratio 4.5 (0-4.9); Cholesterol 150 mg/dL (< 200); HDL Cholesterol 33 mg/dL (40-59); LDL Cholesterol,Calculated 83 mg/dL (0-99); Osmolality,Calculated 286 (280-300); Triglycerides 172 mg/dL (< 150)
[2019-03-06 06:56] VITALS: BP 123/76
[2019-03-06] MEDS: Nicotine 21 MG PATCH.TD24 TD SCH (08:20)
--- NOTE | 2019-03-06 08:46 | Event Note ---
Date of Encounter: 03/06/19 Time of Encounter: 08:30 - Cardiology Event Note LHC demonstrated mild, non-obstructive CAD, EF 55%. Continue medical management, no further inpatient recommendations from Cardiology. Close outpatient follow-up with PCP. Discussed with Dr. Ferguson; Cardiology will sign-off.
[2019-03-06] MEDS ORDERED: Aspirin Enteric Coated 81 MG Tablet PO SCH (09:00)
--- NOTE | 2019-03-06 09:27 | Discharge Summary ---
- NOTES TO OUTPATIENT PROVIDER Notes to Outpatient Provider: f/u with PCP in one week. Please quit smoking. Start taking ASA 81mg Daily, Lipitor 20mg at bed time for cholesterol and Metoprolol 25mg pO BID for your BP and Heart. Date of Encounter: 03/06/19 Time of Encounter: 09:23 - Discharge Diagnosis (1) NSTEMI (non-ST elevated myocardial infarction) Priority: Primary Status: Acute (2) Chest pain Priority: Primary Status: Acute Qualifiers: Chest pain type: chest pain due to myocardial ischemia Ischemic chest pain type: unstable angina pectoris Qualified Code(s): I20.0 - Unstable angina (3) Tobacco dependence Priority: Secondary Status: Acute (4) Artificial cardiac pacemaker Priority: Secondary Status: Chronic (5) COPD (chronic obstructive pulmonary disease) Priority: Secondary Status: Chronic Qualifiers: COPD type: unspecified COPD Qualified Code(s): J44.9 - Chronic obstructive pulmonary disease, unspecified Hospital course: Mr. Pelayo is a 48 year old male with PMH of mild non-obstructive CAD on [facility] in 2013, sick sinus syndrome s/p PPM, HTN, and chronic tobacco dependence, currently not on any medical therapy for his HTN, pt was sent to ER from the primary care physicians's office for chest pain and EKG changes. Patient stated from last 2 weeks has been having intermittent chest pain which seems to progressive worsening now. His chest pain located sub sternal and left chest wall region, 6 out of 10 in severity and non radiating. His CP was also associated with shortness of breath, dizziness and diaphoresis. [facility] showed atrial flutter lipase rhythm with ST, T changes due to possible some early repolarization changes. His initial Trop @ 0.19. He was admitted in the hospital and placed him on tele. His serial trop started trending down peaked at 0.19. He was started on heparin gtt initially and initiated ASA, BB and Statin. He was evaluated Card who did [facility] y/d showed mild CAD with no obstruction. Card recommend aggressive risk factor modification. Will d/c him home in stable condition today. - Time Spent with Patient Total time spent providing and/or coordinating discharge services: - Discharge Medications Prescriptions: Adam Aspirin Enteric Coated [Aspirin EC] 81 mg PO DAILY #30 tablet. Atorvastatin Calcium [Lipitor] 20 mg PO HS #30 tablet Metoprolol [Lopressor] 25 mg PO BID #60 tablet Nicotine Patch [Nicoderm] 21 mg TD DAILY #30 patch.td24 Home Medications: Aspirin Enteric Coated [Aspirin EC] 81 mg PO DAILY #30 tablet. 03/06/19 [Rx] Atorvastatin Calcium [Lipitor] 20 mg PO HS #30 tablet 03/06/19 [Rx] Metoprolol [Lopressor] 25 mg PO BID #60 tablet 03/06/19 [Rx] Nicotine Patch [Nicoderm] 21 mg TD DAILY #30 patch.td24 03/06/19 [Rx] Allergies/Adverse Reactions: Allergy/AdvReac Type Severity Reaction Status Date / Time No Known Allergies Allergy Verified 12/30/17 15:26 Date of admission: 03/05/19 17:05 Primary care physician: PCP NONE - Constitutional Vitals: Temp Pulse Resp BP Pulse Ox 98.1 F 60 16 123/76 96 03/06/19 06:53 03/06/19 06:53 03/06/19 06:53 03/06/19 06:53 03/06/19 06:53 General appearance: Present: cooperative, A&O X 3, no acute distress, answers questions appropriately Exam: Gen: Alert, awake, Oriented to time,place and person Chest: Diminished breath sounds B/L, No wheezing, No crackles, No rales Heart: S1S2+ RRR No murmurs Abd: Soft, NT, BS +, No organomegaly Ext: No edema, pulses are palpable, No calf tenderness Neuro : Benign findings Skin: No rash. - Patient Status Disposition: Home, Self-Care Condition: Fair Overall status at discharge: patient is back to baseline - Discharge Instructions Follow Up With: NONE,PCP [Primary Care Provider] - - Diet and Activity Activity: increase activity as tolerated Diet: low salt diet
--- NOTE | 2019-03-06 12:49 | Electrocardiograph Report ---
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
== END 2019-03-06 10:41 | disposition home or self-care (01) ==
LOC: 3BNU 10:58 → EMEROOARM 10:58 → 3BNU 14:28 → SUATTDRO 17:05
PROVIDERS: ADMIT Internal Medicine Nephrology; ATTEND Family Medicine

== ENCOUNTER 2020-02-29 14:13 | Observation (INO) ==
[2020-02-29] MEDS ORDERED: 0.9 % Sodium Chloride 1,000 ML IVC ONE (14:31)
[2020-02-29 14:49] LABS: Basophils # 0.1 K/mcL (0.0-0.2); Basophils % 1.2 %; Eosinophils # 0.6 K/mcL (0.0-0.6); Eosinophils % 5.4 %; Hematocrit 48.2 % (37.5-50.1); Hemoglobin 16.3 g/dL (12.9-16.9); Immature Granulocytes % 0.4 % (0-4); Lymphocytes # 3.2 K/mcL (0.6-4.6); Lymphocytes % 29.5 %; Mean Corpuscular HGB Conc 33.8 g/dL (31.6-35.5); Mean Corpuscular Hemoglobin 30.4 pg (28.0-33.3); Mean Corpuscular Volume 89.8 fL (83.0-100.0); Monocytes # 0.8 K/mcL (0.0-1.3); Monocytes % 7.7 %; Neutrophils # 6.1 K/mcL (1.6-8.9); Platelet Count 260 K/mcL (140-400); Red Blood Count 5.37 M/mcL (4.19-5.50); Red Cell Distribution Width 13.2 % (11.5-14.5); Segmented Neutrophils % 55.8 %; White Blood Count 10.8 K/mcL (4.3-11.1)
[2020-02-29 14:54] LABS: Prothrombin Time 11.8 Seconds (9.4-12.1)
[2020-02-29 14:55] LABS: BUN/Creatinine Ratio 10 (6-26); Blood Urea Nitrogen 8 mg/dL (6-20); Calcium 9.7 mg/dL (8.6-10.3); Carbon Dioxide 26 mEq/L (23-29); Chloride 97 mEq/L (98-107); Glucose 90 mg/dL (70-105); Osmolality,Calculated 272 (280-300); Potassium 4.1 mEq/L (3.5-5.1); Sodium 132 mEq/L (136-145); eGFR For African Americans > 60 (> 60); eGFR For Non-African Americans > 60 (> 60)
[2020-02-29 14:57] LABS: Activated Partial Thrombo Time 39.1 Seconds (26.0-36.0)
[2020-02-29 15:05] LABS: Alanine Aminotransferase 16 Units/L (7-52); Albumin 4.4 g/dL (3.5-5.7); Albumin/Globulin Ratio 1.5 (1.1-2.2); Alkaline Phosphatase 61 Units/L (34-104); Aspartate Amino Transferase 23 Units/L (13-39); Bilirubin,Direct 0.1 mg/dL (0.0-0.2); Bilirubin,Indirect 0.5 mg/dL (0.0-1.0); Bilirubin,Total 0.6 mg/dL (0.3-1.0); Total Protein 7.4 g/dL (6.4-8.9)
[2020-02-29] MEDS ORDERED: Aspirin 81 MG TAB.CHEW PO STA (15:23)
[2020-02-29] MEDS ORDERED: Azithromycin 500 MG in 0.9 % Sodium Chloride 250 ML IVPB STA (16:59)
[2020-02-29] MEDS ORDERED: cefTRIAXone 1,000 MG in Water for inj. (sterile) 10 ML IVP STA (16:59)
[2020-02-29] MEDS ORDERED: Ondansetron 4 MG/2 ML VIAL IVP PRN (17:29)
[2020-02-29] MEDS ORDERED: Naloxone 0.4 MG/ML INJ IVP PRN (17:29)
[2020-02-29] MEDS ORDERED: Ipratropium/Albuterol Neb 3 ML IH PRN (17:35)
[2020-02-29] MEDS: Ipratropium/Albuterol Neb 3 ML IH SCH ×2 (19:06→21:53)
[2020-02-29] MEDS: *HR* Heparin 5,000 UNIT/ML VIAL SQ SCH (21:27)
[2020-02-29] MEDS: Nicotine 21 MG PATCH.TD24 TD SCH (21:27)
[2020-02-29] MEDS: MethylPREDNISolone 40 MG/ML VIAL IVP SCH (21:31)
[2020-02-29] MEDS: Budesonide/Formoterol 160/4.5 1 PUFF INH IH SCH (21:53)
[2020-03-01 03:13] LABS: Basophils # 0.1 K/mcL (0.0-0.2); Basophils % 0.7 %; Eosinophils # 0.1 K/mcL (0.0-0.6); Eosinophils % 0.6 %; Hematocrit 47.3 % (37.5-50.1); Hemoglobin 16.2 g/dL (12.9-16.9); Immature Granulocytes % 0.2 % (0-4); Lymphocytes # 1.3 K/mcL (0.6-4.6); Lymphocytes % 13.7 %; Mean Corpuscular HGB Conc 34.2 g/dL (31.6-35.5); Mean Corpuscular Hemoglobin 30.7 pg (28.0-33.3); Mean Corpuscular Volume 89.8 fL (83.0-100.0); Mean Platelet Volume 8.8 fL (9.4-12.4); Monocytes # 0.1 K/mcL (0.0-1.3); Monocytes % 1.4 %; Neutrophils # 7.8 K/mcL (1.6-8.9); Platelet Count 259 K/mcL (140-400); Red Blood Count 5.27 M/mcL (4.19-5.50); Red Cell Distribution Width 13.1 % (11.5-14.5); Segmented Neutrophils % 83.4 %; White Blood Count 9.4 K/mcL (4.3-11.1)
[2020-03-01] MEDS: Ipratropium/Albuterol Neb 3 ML IH SCH ×4 (03:27→21:45)
[2020-03-01 03:33] LABS: BUN/Creatinine Ratio 12 (6-26); Blood Urea Nitrogen 10 mg/dL (6-20); Calcium 9.4 mg/dL (8.6-10.3); Carbon Dioxide 25 mEq/L (23-29); Chloride 102 mEq/L (98-107); Glucose 122 mg/dL (70-105); Osmolality,Calculated 278 (280-300); Potassium 4.6 mEq/L (3.5-5.1); Sodium 134 mEq/L (136-145); Troponin I 0.12 ng/mL (< 0.04); eGFR For African Americans > 60 (> 60); eGFR For Non-African Americans > 60 (> 60)
[2020-03-01 04:53] LABS: Adenovirus Not Detected (Not Detect); Bordetella Pertussis Not Detected (Not Detect); Chlamydophila pneumoniae Not Detected (Not Detect); Coronavirus 229E Not Detected (Not Detect); Coronavirus HKU1 Not Detected (Not Detect); Coronavirus NL63 Not Detected (Not Detect); Coronavirus OC43 Not Detected (Not Detect); Human Metapneumovirus Not Detected (Not Detect); Human Rhinovirus/Enterovirus Not Detected (Not Detect); Influenza A Subtype 2009 H1 Not Detected (Not Detect); Influenza B Not Detected (Not Detect); Mycoplasma pneumoniae Not Detected (Not Detect); Parainfluenza Virus 1 Not Detected (Not Detect); Parainfluenza Virus 2 Not Detected (Not Detect); Parainfluenza Virus 3 Not Detected (Not Detect); Parainfluenza Virus 4 Not Detected (Not Detect); Respiratory Syncytial Virus Not Detected (Not Detect)
[2020-03-01] MEDS: *HR* Heparin 5,000 UNIT/ML VIAL SQ SCH ×2 (05:50→17:05)
[2020-03-01] MEDS: Aspirin Enteric Coated 81 MG Tablet PO SCH (08:36)
[2020-03-01] MEDS: Nicotine 21 MG PATCH.TD24 TD SCH (08:37)
[2020-03-01] MEDS: Budesonide/Formoterol 160/4.5 1 PUFF INH IH SCH ×2 (10:30→21:45)
[2020-03-01] MEDS ORDERED: cefTRIAXone 2,000 MG in Water for inj. (sterile) 20 ML IVP SCH (17:00)
[2020-03-01] MEDS ORDERED: Azithromycin 500 MG in 0.9 % Sodium Chloride 250 ML IVPB SCH (17:00)
[2020-03-01] MEDS: MethylPREDNISolone 40 MG/ML VIAL IVP SCH (17:06)
[2020-03-02] MEDS: Acetaminophen 325 MG TABLET PO PRN ×2 (00:10→09:05)
[2020-03-02] MEDS: Ipratropium/Albuterol Neb 3 ML IH SCH ×2 (03:44→09:27)
[2020-03-02] MEDS: *HR* Heparin 5,000 UNIT/ML VIAL SQ SCH (04:58)
[2020-03-02 07:05] VITALS: BP 137/84
[2020-03-02] MEDS: Aspirin Enteric Coated 81 MG Tablet PO SCH (09:03)
[2020-03-02] MEDS: Nicotine 21 MG PATCH.TD24 TD SCH (09:04)
[2020-03-02] MEDS: Budesonide/Formoterol 160/4.5 1 PUFF INH IH SCH (09:25)
== END 2020-03-02 11:38 | disposition home or self-care (01) ==
LOC: EMEROOARM 14:13 → 2ANU 14:13
PROVIDERS: ADMIT Internal Medicine; ATTEND Internal Medicine